=== PATIENT | male | born 1955 | race Caucasian/White ===

== ENCOUNTER 2017-11-24 12:06 | Emergency (ER) | payer BC, OTHER ==
[2017-11-24 12:21] VITALS: RESP 18
--- NOTE | 2017-11-24 13:36 | ED ---
Male Urogenital HPI - General Chief complaint: Urogenital Stated complaint: Groin Pain/ pulled muscle sent from [facility] Time Seen by Provider: 11/24/17 12:23 Source: patient, RN notes reviewed Mode of arrival: ambulatory Limitations: no limitations - History of Present Illness Initial comments: This is a 62-year-old male who presents to the emergency department with chief complaint of right groin pain. Patient states that at approximately 8:45 this morning he was moving a 200 pound valve at work and he felt sudden onset right groin pain. He describes the pain as sharp and stabbing with a constant aching. He reports that the pain is made worse by going upstairs and sitting. It is improved with standing. Denies any trauma to the area. He does state that he has right testicular and right lower abdominal pain. Denies back pain. Denies dysuria, hematuria or increased frequency of urination. Denies fevers or chills, shortness of breath or chest pain, nausea or vomiting, diarrhea or constipation. - Related Data Home Medications Medication Instructions Recorded Confirmed Aspirin 325 mg PO DAILY 04/21/15 05/26/16 Clopidogrel Bisulfate [Plavix] 75 mg PO DAILY 04/21/15 05/24/16 Famotidine [Pepcid] 20 mg PO DAILY 04/21/15 05/24/16 Isosorbide Dinitrate 30 mg PO DAILY 04/21/15 05/24/16 Losartan [Cozaar] 50 mg PO DAILY 04/21/15 05/24/16 Metoprolol Tartrate [Lopressor] 25 mg PO BID 04/21/15 05/24/16 Rosuvastatin Calcium [Crestor] 20 mg PO DAILY 04/21/15 05/24/16 Previous Rx's Medication Instructions Recorded Nitroglycerin Sl Tabs [Nitrostat] 0.4 mg SUBLINGUAL Q5M PRN #25 tab 05/27/16 glyBURIDE/METFORMIN HCL 1 each PO BID #0 05/27/16 [glyBURIDE/METFORMIN HCL 5-500 mg] Allergies Allergy/AdvReac Type Severity Reaction Status Date / Time No Known Allergies Allergy Verified 11/24/17 12:21 Review of Systems ROS Statement: Those systems with pertinent positive or pertinent negative responses have been documented in the HPI. ROS Other: All systems not noted in ROS Statement are negative. 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 HEENT: Head atraumatic, normocephalic. Pupils are equal, round and reactive to light. Extraocular movements intact. Oropharynx moist without erythema or exudate. Neck: Supple. Normal ROM. Cardiovascular: Regular rate and rhythm. No murmurs, rubs or gallops. Chest symmetrical. Respiratory: Lungs clear to auscultation bilaterally. No wheezes, rales or rhonchi. Normal respiratory effort with no use of accessory muscles. Abdomen: Soft, non-distended. Tenderness on palpation of right lower abdomen and suprapubic region. No rigidity or guarding. There is rebound tenderness. Normal bowel sounds in all 4 quadrants. Musculoskeletal: Normal ROM, no tenderness bilateral upper and lower extremities. Ambulating normally. Skin: [place], warm and dry without rashes or lesions. Neurological: Alert and oriented x3. CN II-XII grossly intact. Speech is fluent and answers are appropriate. No focal neuro deficits. Psychiatric: Normal mood and affect. No overt signs of depression or anxiety noted. Limitations: no limitations exam: Present: normal inspection, testicular tenderness (right ), other ( Tenderness noted over right testicle and right epididymis. No palpable hernia with forced cough. Right inguinal and right suprapubic tenderness on palpation. ). Absent: urethral discharge, scrotal swelling Course Vital Signs 11/24/17 11/24/17 12:18 13:51 Temperature 98.2 F 98.5 F Pulse Rate 78 81 Respiratory 18 18 Rate Blood Pressure 118/76 115/69 O2 Sat by Pulse 97 100 Oximetry Medical Decision Making - Medical Decision Making This is a 62-year-old male who presents to the emergency department with chief complaint of right groin pain. Patient states that he was at work and moving a large pipe when he felt sudden onset right groin pain that patient described as stabbing. Ultrasound of right groin revealed no acute abnormalities. Ultrasound of the scrotum did reveal bilateral testicular hydroceles. Patient complains of only mild pain. Vital signs are stable and he is in no acute distress. Patient will be discharged home with recommendation to follow up with surgery for further evaluation and possible treatment. Patient is in agreement with plan and voices understanding. All questions were answered. - Radiology Data Radiology results: report reviewed Ultrasound right groin findings: Images of area of concern in the right groin shows no worrisome solid or cystic mass or abnormal fluid collection. No bowel or suspicious fat-containing inguinal hernia is present on images saved. Impression: As above. Ultrasound scrotum with Doppler impression: Moderate to large size right greater than left scrotal fluid collection or hydroceles. Disposition Clinical Impression: Right groin pain Disposition: HOME SELF-CARE Condition: Good Instructions: Groin Pain (ED) Additional Instructions: Please follow-up with Dr. Thurman, surgery within 1-2 days. Please only perform light duty at work and limit heavy lifting. Please follow up with primary care provider within 1-2 days. Return to emergency department if symptoms should worsen or any concerns arise. Referrals: Vinh Chatman MD [Primary Care Provider] - 1-2 days Fer Thurman DO [Doctor of Osteopathic Medicine] - 1-2 days Time of Disposition: 14:10
--- NOTE | 2017-11-24 13:49 | US ---
EXAMINATION TYPE: US scrotum with doppler. Grayscale and color Doppler Duplex imaging performed of chacha weeks scrotum. DATE OF EXAM: 11/24/2017 COMPARISON: NONE CLINICAL HISTORY: Pain. right groin (muscle) pull EXAM MEASUREMENTS: TESTICLES: Right Testicle: 4.7 x 3.1 x 2.4 cm Left Testicle: 4.2 x 2.7 x 2.7 cm Doppler performed to assess for testicular vascularity; good bilateral color flow and waveforms are s een. Presence of hydroceles: yes fluid bilaterally with more in right scrotum Bilateral testicles are homogeneous in appearance without suspicious focal intratesticular mass. Holden r images shows satisfactory arterial blood flow to and venous return from both testicles. There are s crotal fluid collection or hydroceles seen bilaterally fairly moderate to large in size, right is lar smooth than left. Comparison views show symmetric blood flow to both testicles. No suspicious skin thickening is seen. Scrotal fluid collections are partially imaged. IMPRESSION: Moderate to large size right greater than left scrotal fluid collection or hydroceles.
--- NOTE | 2017-11-24 13:50 | US ---
EXAMINATION TYPE: US groin RT DATE OF EXAM: 11/24/2017 COMPARISON: NONE CLINICAL HISTORY: Pain. rt groin (muscle) pull Right groin and inguina scanned. No gross abnormality identified Images of area of concern in right groin shows no worrisome solid or cystic mass or abnormal fluid co llection. No bowel or suspicious fat-containing inguinal hernia is present on images saved. IMPRESSION: As above.
[2017-11-24 13:52] VITALS: BP 115/69; PULSE 81; TEMP 98.5
== END 2017-11-24 14:24 | disposition home or self-care (01) ==
LOC: EC 12:06
DX: R10.31 Right lower quadrant pain (principal); N50.811 Right testicular pain; I25.10 Atherosclerotic heart disease of native coronary artery without angina pectoris; K21.9 Gastro-esophageal reflux disease without esophagitis; E78.5 Hyperlipidemia, unspecified; I10 Essential (primary) hypertension; I25.2 Old myocardial infarction; Z85.840 Personal history of malignant neoplasm of eye; Z79.82 Long term (current) use of aspirin; Z79.02 Long term (current) use of antithrombotics/antiplatelets; Z79.899 Other long term (current) drug therapy
CPT/HCPCS: 76870; 93975; 99284

== ENCOUNTER 2018-06-07 23:50 | Observation (INO) | payer MEDICARE, OTHER, BC ==
[2018-06-07 23:59] VITALS: RESP 18
[2018-06-08 00:35] LABS: Basophils % (A) 1 %; Eosinophils # (A) 0.2 k/uL (0-0.7); Eosinophils % (A) 4 %; HCT 39.6 % (39.0-53.0); Lymphocytes # (A) 1.7 k/uL (1.0-4.8); Lymphocytes % (A) 34 %; MCH 29.7 pg (25.0-35.0); MCHC 35.3 g/dL (31.0-37.0); MCV 84.3 fL (80.0-100.0); Mean Platelet Volume 7.4; Monocytes # (A) 0.5 k/uL (0-1.0); Monocytes % (A) 11 %; Neutrophils # (A) 2.3 k/uL (1.3-7.7); Neutrophils % (A) 47 %; Platelet Count 159 k/uL (150-450); RDW 13.9 % (11.5-15.5); WBC 4.8 k/uL (3.8-10.6)
--- NOTE | 2018-06-08 00:40 | XR ---
EXAMINATION TYPE: XR chest 2V DATE OF EXAM: 06/08/2018 COMPARISON: NONE HISTORY: Chest pain TECHNIQUE: Frontal and lateral views of the chest are obtained. FINDINGS: Heart and mediastinum are normal. Lungs are clear. Diaphragm is normal. Bony thorax is int act. There are chest leads. IMPRESSION: Normal chest.
[2018-06-08] MEDS ORDERED: NITROGLYCERIN OINT 1 INCH/GM PACKET TOPICAL STA (00:42)
[2018-06-08] MEDS ORDERED: ASPIRIN 81 MG PO STA (00:42)
[2018-06-08 00:45] LABS: INR 1.2 (<1.2); Prothrombin Time 11.2 sec (9.0-12.0)
[2018-06-08 00:46] LABS: Partial Thromboplastin Time 23.1 sec (22.0-30.0)
[2018-06-08 00:47] LABS: ALT 39 U/L (21-72); AST 35 U/L (17-59); Alkaline Phosphatase 72 U/L (38-126); Anion Gap 10 mmol/L; Blood Urea Nitrogen 23 mg/dL (9-20); Calcium 9.1 mg/dL (8.4-10.2); Carbon Dioxide 22 mmol/L (22-30); Chloride 109 mmol/L (98-107); Glucose 167 mg/dL (74-99); Magnesium 2.1 mg/dL (1.6-2.3); Potassium 3.7 mmol/L (3.5-5.1); Sodium 141 mmol/L (137-145); Total Bilirubin 1.1 mg/dL (0.2-1.3); Total Protein 6.4 g/dL (6.3-8.2)
[2018-06-08 00:50] LABS: Creatine Kinase 168 U/L (55-170)
--- NOTE | 2018-06-08 00:51 | ED ---
General Adult HPI - General Source: patient, EMS, RN notes reviewed Mode of arrival: EMS Limitations: no limitations <Marco Anderson - Last Filed: 06/08/18 00:51> <Nicolas Dong - Last Filed: 06/08/18 03:21> - General Chief complaint: Chest Pain Stated complaint: Chest Pain Time Seen by Provider: 06/08/18 00:20 - History of Present Illness Initial comments: Patient is a pleasant [age]-year-old male presenting to the emergency Department with chest discomfort. Patient was woken from sleep approximately an hour ago. Discomfort felt like she with some rotation towards the arm. No associated dyspnea or diaphoresis. Patient was slightly nauseated that has resolved. Patient did take aspirin and nitroglycerin at home that his near resolved his symptoms. Symptoms are very mild at this time rated 1 or 2 out of 10. Patient is unclear if symptoms are related to previous cardiac problems. No leg pain or leg swelling. (Marco Anderson) - Related Data Home Medications Medication Instructions Recorded Confirmed Aspirin 325 mg PO DAILY 04/21/15 05/26/16 Clopidogrel Bisulfate [Plavix] 75 mg PO DAILY 04/21/15 05/24/16 Famotidine [Pepcid] 20 mg PO DAILY 04/21/15 05/24/16 Isosorbide Dinitrate 30 mg PO DAILY 04/21/15 05/24/16 Losartan [Cozaar] 50 mg PO DAILY 04/21/15 05/24/16 Metoprolol Tartrate [Lopressor] 25 mg PO BID 04/21/15 05/24/16 Rosuvastatin Calcium [Crestor] 20 mg PO DAILY 04/21/15 05/24/16 Previous Rx's Medication Instructions Recorded Nitroglycerin Sl Tabs [Nitrostat] 0.4 mg SUBLINGUAL Q5M PRN #25 tab 05/27/16 glyBURIDE/METFORMIN HCL 1 each PO BID #0 05/27/16 [glyBURIDE/METFORMIN HCL 5-500 mg] Allergies Allergy/AdvReac Type Severity Reaction Status Date / Time No Known Allergies Allergy Verified 06/08/18 00:02 Review of Systems ROS Other: All systems not noted in ROS Statement are negative. Constitutional: Denies: fever Eyes: Denies: eye pain ENT: Denies: ear pain Respiratory: Denies: cough, dyspnea Cardiovascular: Reports: chest pain Endocrine: Denies: fatigue Gastrointestinal: Reports: nausea. Denies: abdominal pain Genitourinary: Denies: dysuria Musculoskeletal: Denies: back pain Skin: Denies: rash Neurological: Denies: weakness <Marco Anderson - Last Filed: 06/08/18 00:51> ROS Other: All systems not noted in ROS Statement are negative. <NavdeepbrianNicolas - Last Filed: 06/08/18 03:21> ROS Statement: Those systems with pertinent positive or pertinent negative responses have been documented in the HPI. 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 Past Anesthesia/Blood Transfusion Reactions: No Reported Reaction Date of Last Stent Placement:: 2005 Past Psychological History: No Psychological Hx Reported Smoking Status: Never smoker Past Alcohol Use History: Occasional Past Drug Use History: None Reported - Past Family History Mother Family Medical History: Cancer Father Family Medical History: Cancer Brother(s) Family Medical History: Cancer Sister(s) Family Medical History: Cancer <Marco Anderson - Last Filed: 06/08/18 00:51> General Exam Limitations: no limitations General appearance: alert, in no apparent distress Head exam: Present: atraumatic Eye exam: Present: other (Right eye is prosthetic) ENT exam: Present: normal oropharynx Neck exam: Present: normal inspection Respiratory exam: Present: normal lung sounds bilaterally. Absent: chest wall tenderness Cardiovascular Exam: Present: regular rate, normal rhythm Expanded Peripheral pulses: 2+: Radial (R), Radial (L), Dorsalis Pedis (R), Dorsalis Pedis (L) GI/Abdominal exam: Present: soft. Absent: tenderness Extremities exam: Present: normal inspection. Absent: pedal edema, calf tenderness Neurological exam: Present: alert Psychiatric exam: Present: normal affect, normal mood Skin exam: Present: normal color. Absent: rash, cyanosis, pallor <Marco Anderson - Last Filed: 06/08/18 00:51> Course <Marco Anderson - Last Filed: 06/08/18 00:51> <Nicolas Dong - Last Filed: 06/08/18 03:21> Vital Signs 06/07/18 06/08/18 06/08/18 23:52 00:00 00:54 Temperature 98.5 F Pulse Rate 58 L 62 Respiratory 18 18 Rate Blood Pressure 136/63 136/63 O2 Sat by Pulse 96 95 Oximetry 06/08/18 02:50 Temperature Pulse Rate 61 Respiratory 18 Rate Blood Pressure 94/59 O2 Sat by Pulse 98 Oximetry - Reevaluation(s) Reevaluation #1: 06/08/18 00:[address] Crain for final disposition (Marco Anderson) EKG Findings - EKG Comments: EKG Findings:: Sinus rhythm at 63. PVC present. First degree AV block ID of 202. QRS 106. QT 420. QTc 420 9P left axis. LVH criteria. Inferior Q waves. No acute ST change. <Marco Anderson - Last Filed: 06/08/18 00:51> Medical Decision Making - Lab Data Result diagrams: 06/08/18 00:01 06/08/18 00:01 <Marco Anderson - Last Filed: 06/08/18 00:51> - Lab Data Result diagrams: 06/08/18 00:01 06/08/18 00:01 <Nicolas Dong - Last Filed: 06/08/18 03:21> - Lab Data Lab Results 06/08/18 06/08/18 06/08/18 Range/Units 00:01 00:01 00:01 WBC 4.8 (3.8-10.6) k/uL RBC 4.70 (4.30-5.90) m/uL Hgb 14.0 (13.0-17.5) gm/dL Hct 39.6 (39.0-53.0) % MCV 84.3 (80.0-100.0) fL MCH 29.7 (25.0-35.0) pg MCHC 35.3 (31.0-37.0) g/dL RDW 13.9 (11.5-15.5) % Plt Count 159 (150-450) k/uL Neutrophils % 47 % Lymphocytes % 34 % Monocytes % 11 % Eosinophils % 4 % Basophils % 1 % Neutrophils # 2.3 (1.3-7.7) k/uL Lymphocytes # 1.7 (1.0-4.8) k/uL Monocytes # 0.5 (0-1.0) k/uL Eosinophils # 0.2 (0-0.7) k/uL Basophils # 0.0 (0-0.2) k/uL PT (9.0-12.0) sec INR (<1.2) APTT (22.0-30.0) sec D-Dimer (<0.60) mg/L FEU Sodium 141 (137-145) mmol/L Potassium 3.7 (3.5-5.1) mmol/L Chloride 109 H (98-107) mmol/L Carbon Dioxide 22 (22-30) mmol/L Anion Gap 10 mmol/L BUN 23 H (9-20) mg/dL Creatinine 0.89 (0.66-1.25) mg/dL Est GFR (CKD-EPI)AfAm >90 (>60 ml/min/1.73 sqM) Est GFR (CKD-EPI)NonAf >90 (>60 ml/min/1.73 sqM) Glucose 167 H (74-99) mg/dL Calcium 9.1 (8.4-10.2) mg/dL Magnesium 2.1 (1.6-2.3) mg/dL Total Bilirubin 1.1 (0.2-1.3) mg/dL AST 35 (17-59) U/L ALT 39 (21-72) U/L Alkaline Phosphatase 72 (38-126) U/L Total Creatine Kinase 168 (55-170) U/L CK-MB (CK-2) 2.3 (0.0-2.4) ng/mL CK-MB (CK-2) Rel Index 1.4 Troponin I <0.012 (0.000-0.034) ng/mL Total Protein 6.4 (6.3-8.2) g/dL Albumin 4.0 (3.5-5.0) g/dL 06/08/18 06/08/18 Range/Units 00:01 00:01 WBC (3.8-10.6) k/uL RBC (4.30-5.90) m/uL Hgb (13.0-17.5) gm/dL Hct (39.0-53.0) % MCV (80.0-100.0) fL MCH (25.0-35.0) pg MCHC (31.0-37.0) g/dL RDW (11.5-15.5) % Plt Count (150-450) k/uL Neutrophils % % Lymphocytes % % Monocytes % % Eosinophils % % Basophils % % Neutrophils # (1.3-7.7) k/uL Lymphocytes # (1.0-4.8) k/uL Monocytes # (0-1.0) k/uL Eosinophils # (0-0.7) k/uL Basophils # (0-0.2) k/uL PT 11.2 (9.0-12.0) sec INR 1.2 H (<1.2) APTT 23.1 (22.0-30.0) sec D-Dimer 0.33 (<0.60) mg/L FEU Sodium (137-145) mmol/L Potassium (3.5-5.1) mmol/L Chloride (98-107) mmol/L Carbon Dioxide (22-30) mmol/L Anion Gap mmol/L BUN (9-20) mg/dL Creatinine (0.66-1.25) mg/dL Est GFR (CKD-EPI)AfAm (>60 ml/min/1.73 sqM) Est GFR (CKD-EPI)NonAf (>60 ml/min/1.73 sqM) Glucose (74-99) mg/dL Calcium (8.4-10.2) mg/dL Magnesium (1.6-2.3) mg/dL Total Bilirubin (0.2-1.3) mg/dL AST (17-59) U/L ALT (21-72) U/L Alkaline Phosphatase (38-126) U/L Total Creatine Kinase (55-170) U/L CK-MB (CK-2) (0.0-2.4) ng/mL CK-MB (CK-2) Rel Index Troponin I (0.000-0.034) ng/mL Total Protein (6.3-8.2) g/dL Albumin (3.5-5.0) g/dL Disposition <Marco Anderson - Last Filed: 06/08/18 00:51> Is patient prescribed a controlled substance at d/c from ED?: No <Nicolas Dong - Last Filed: 06/08/18 03:21> Clinical Impression: Chest pain Disposition: ADMITTED IP TO THIS HOSP Condition: Good Instructions: Chest Pain (ED) Referrals: Vinh Chatman MD [Primary Care Provider] - 1-2 days
[2018-06-08 01:03] LABS: Creatine Kinase MB 2.3 ng/mL (0.0-2.4); Troponin I <0.012 ng/mL (0.000-0.034)
[2018-06-08] MEDS ORDERED: NITROGLYCERIN SL TABS 0.4 MG TAB SUBLINGUAL PRN (03:19)
[2018-06-08] MEDS: SODIUM CHLORIDE 0.9% 1,000 ML IV SCH ×2 (05:15→17:29)
[2018-06-08 07:02] LABS: Creatine Kinase 136 U/L (55-170)
[2018-06-08 07:14] LABS: Troponin I <0.012 ng/mL (0.000-0.034)
[2018-06-08] MEDS ORDERED: ATORVASTATIN 40 MG TAB PO SCH (09:00)
[2018-06-08] MEDS ORDERED: LOSARTAN 50 MG TAB PO SCH (09:00)
[2018-06-08] MEDS ORDERED: ISOSORBIDE DINITRATE 10 MG TAB PO SCH ×2 (09:00)
[2018-06-08] MEDS ORDERED: REGADENOSON 0.4 MG/5 ML SYRINGE IV ONE (09:02)
[2018-06-08] MEDS ORDERED: CAFFEINE CITRATE 60 MG/3 ML VIAL IV PRN (09:02)
--- NOTE | 2018-06-08 10:11 | P.CRDCN ---
History of Present Illness History of present illness: Mr. Charles is a pleasant 62-year-old male past medical history significant for coronary artery disease, diabetes mellitus, aortic stenosis, dyslipidemia, hypertension, gastroesophageal reflux disease and ischemic cardiomyopathy that has improved. He follows with Dr. Joel in the office. Most recent cardiac catheterization 2015 secondary to abnormal lexiscan with reversibility noted to inferolateral segment revealed LM patent with no disease, LAD no disease, circumflex with patent stend and mild disease in mid portion with no critical stenosis and RCA with 80% in-stent restenosis proximally. He underwent stenting at that time. We have been asked to see him in consultation for chest pain. He states he worked in his yard yesterday painting his shed. He had no chest pain while working. After falling asleep last night he was woken up in the middle of the night with what he describes as a crushing pain in the left precordial region with radiation down the left arm to the elbow with associated nausea. He denies shortness of breath, dizziness, palpitations or diaphoresis. He got out of bed and took 4 baby aspirin and SL nitro. The pain persisted and he took another nitro minutes later. After the second nitro his pain subsided. He has had no further symptoms of chest pain since coming to the hospital. He was seen and examined by myself and Dr. Jonas sleeping comfortably in bed in no acute distress. EKG on arrival sinus mechanism with PVC, inferior T-wave inversions and poor R- wave progression. Chest xray negative for an acute cardiopulmonary process. Laboratory data reviewed, hgb 14, plt 159, d-dimer 0.33, sodium 141, potassium 3.7, magnesium 2.1, creatinine 0.89, cardiac enzymes negative x2. Current cardiac medications include aspirin 325 mg daily, isosorbid dinitrate 30 mg daily, losartain 50 mg daily, lopressor 25 mg BID and rosuvastatin 20 mg daily. Most recent echocardiogram performed in the office 02/2018 revealed preserved LV systolic function with EF 55%, mild aortic regurgitation and moderate aortic stenosis with mean gradient across the valve of 26 mmHg. Most recent stress test was a Lexiscan 06/2016, 2 months after angioplasty, was normal with no reversible perfusion defects noted. Plan: No acute EKG abnormalities noted. Enzymes negative. Proceed with Lexiscan stress test to assess for stress induced ischemia. Repeat echocardiogram to assess LV systolic structure and function. Resume home cardiac medications. If stress test is normal he is stable from a cardiac perspective, if abnormal we will proceed with coronary angiography Review of Systems At the time of my exam: CONSTITUTIONAL: Denies fever. Denies chills. EYES: Denies blurred vision. Denies vision changes. Denies eye pain. EARS, NOSE, MOUTH & THROAT: Denies headache. Denies sore throat. Denies ear pain. CARDIOVASCULAR: Denies chest pain. Denies shortness of breath. Denies orthopnea. Denies PND. Denies palpitations. RESPIRATORY: Denies cough. GASTROINTESTINAL: Denies abdominal pain. Denies diarrhea. Denies constipation. Denies nausea. Denies vomiting. MUSCULOSKELETAL: Denies myalgias. INTEGUMENTARY: Denies pruitis. Denies rash. NEUROLOGIC: Denies numbness. Denies tingling. Denies weakness. PSYCHIATRIC: Denies anxiety. Denies depression. ENDOCRINE: Denies fatigue. Denies weight change. Denies polydipsia. Denies polyurina. GENITOURINARY: Denies burning, hematuria or urgency with micturation. HEMATOLOGIC: Denies history of anemia. Denies bleeding. 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 Past Anesthesia/Blood Transfusion Reactions: No Reported Reaction Date of Last Stent Placement:: 2005 Past Psychological History: No Psychological Hx Reported Smoking Status: Never smoker Past Alcohol Use History: Occasional Past Drug Use History: None Reported - Past Family History Mother Family Medical History: Cancer Father Family Medical History: Cancer Brother(s) Family Medical History: Cancer Sister(s) Family Medical History: Cancer Medications and Allergies Home Medications Medication Instructions Recorded Confirmed Type Aspirin 325 mg PO DAILY 04/21/15 06/08/18 History Famotidine [Pepcid] 20 mg PO DAILY 04/21/15 06/08/18 History Isosorbide Dinitrate 30 mg PO DAILY 04/21/15 06/08/18 History Losartan [Cozaar] 50 mg PO DAILY 04/21/15 06/08/18 History Metoprolol Tartrate [Lopressor] 25 mg PO BID 04/21/15 06/08/18 History Rosuvastatin Calcium [Crestor] 20 mg PO DAILY 04/21/15 06/08/18 History Nitroglycerin Sl Tabs [Nitrostat] 0.4 mg SUBLINGUAL Q5M PRN #25 tab 05/27/1607/16 Rx Canagliflozin/Metformin HCl 1 tablet PO BID 06/08/18 06/08/18 History [Invokamet 150-500 mg Tablet] Allergies Allergy/AdvReac Type Severity Reaction Status Date / Time No Known Allergies Allergy Verified 06/08/18 00:02 Physical Exam Vitals: Vital Signs Temp Pulse Pulse Resp BP BP Pulse Ox 06/08/18 08:00 98.0 F 51 L 18 113/58 06/08/18 06:16 97.6 F 56 L 18 123/72 96 06/08/18 02:50 61 18 94/59 98 06/08/18 00:54 62 18 136/63 95 06/08/18 00:00 96 06/07/18 23:52 98.5 F 58 L 18 136/63 Intake and Output 06/07/18 06/08/18 06/08/18 22:59 06:59 14:59 Other: # Voids 2 Weight 83.915 kg 83.915 kg Blood pressure 113/58 heart rate 51 afebrile maintaining oxygen saturation on room air GENERAL: This is a 62-year-old male in no apparent distress at the time of my examination. HEENT: Head is atraumatic, normocephalic. Pupils are equal, round. Sclerae anicteric. Conjunctivae are clear. Mucous membranes of the mouth are moist. Neck is supple. There is no jugular venous distention. No carotid bruit is heard. LUNGS: Clear to auscultation no wheezes, rales or rhonchi. No chest wall tenderness is noted on palpation or with deep breathing. HEART: Regular rate and rhythm with systolic ejection murmur at the base, no rubs or gallops. S1 and S2 heard. ABDOMEN: Soft, nontender. Bowel sounds are heard. No organomegaly noted. EXTREMITIES: No evidence of peripheral edema and no calf tenderness noted. VASCULAR: Radial and dorsalis pedis pulses palpated, no evidence of clubbing. NEUROLOGIC: Patient is awake, alert and oriented x3. Results 06/08/18 00:01 06/08/18 00:01 Cardiac Enzymes 06/08/18 06/08/18 06/08/18 Range/Units 00:01 00:01 06:29 AST 35 (17-59) U/L CK-MB (CK-2) 2.3 2.0 (0.0-2.4) ng/mL Troponin I <0.012 <0.012 (0.000-0.034) ng/mL Coagulation 06/08/18 Range/Units 00:01 PT 11.2 (9.0-12.0) sec APTT 23.1 (22.0-30.0) sec CBC 06/08/18 Range/Units 00:01 WBC 4.8 (3.8-10.6) k/uL RBC 4.70 (4.30-5.90) m/uL Hgb 14.0 (13.0-17.5) gm/dL Hct 39.6 (39.0-53.0) % Plt Count 159 (150-450) k/uL Comprehensive Metabolic Panel 06/08/18 Range/Units 00:01 Sodium 141 (137-145) mmol/L Potassium 3.7 (3.5-5.1) mmol/L Chloride 109 H (98-107) mmol/L Carbon Dioxide 22 (22-30) mmol/L BUN 23 H (9-20) mg/dL Creatinine 0.89 (0.66-1.25) mg/dL Glucose 167 H (74-99) mg/dL Calcium 9.1 (8.4-10.2) mg/dL AST 35 (17-59) U/L ALT 39 (21-72) U/L Alkaline Phosphatase 72 (38-126) U/L Total Protein 6.4 (6.3-8.2) g/dL Albumin 4.0 (3.5-5.0) g/dL Current Medications Generic Name Dose Route Start Last Admin Trade Name Freq PRN Reason Stop Dose Admin Aspirin 325 mg 06/09/18 09:00 Aspirin PO DAILY DARIUS Atorvastatin Calcium 40 mg 06/08/18 09:00 Lipitor PO DAILY DARIUS Caffeine Citrate 60 mg 06/08/18 09:02 Cafcit Inj IV 06/08/18 23:00 ONCE PRN Patient Response Sodium Chloride 1,000 mls @ 100 mls/hr 06/08/18 03:30 06/08/18 05:15 Saline 0.9% IV 100 mls/hr .Q10H DARIUS Administration Isosorbide Dinitrate 30 mg 06/08/18 09:00 Isordil PO DAILY DARIUS Losartan Potassium 50 mg 06/08/18 09:00 Cozaar PO DAILY DARIUS Nitroglycerin 0.4 mg 06/08/18 03:19 Nitrostat SUBLINGUAL Q5M PRN Chest Pain Intake and Output 06/07/18 06/08/18 06/08/18 22:59 06:59 14:59 Other: # Voids 2 Weight 83.915 kg 83.915 kg Patient Weight 06/09/18 06:59 Weight 83.915 kg 06/08/18 00:01 06/08/18 00:01 Assessment and Plan Assessment: ASSESSMENT Angina at rest, relieved by nitroglycerin History coronary artery disease. Most recent angioplasty 2015 with stenting of mid RCA in-stent restenosis. Also has stable distal RCA disease approximately 50 % Aortic stenosis Hypertension Dyslipidemia Diabetes mellitus Gastroesophageal reflux disease PLAN No acute EKG abnormalities noted. Enzymes negative. Proceed with Lexiscan stress test to assess for stress induced ischemia. Repeat echocardiogram to assess LV systolic structure and function. Resume home cardiac medications. If stress test is normal he is stable from a cardiac perspective, if abnormal we will proceed with coronary angiography. Thank you kindly for this consultation. Nurse Practitioner note has been reviewed, I agree with a documented findings and plan of care. Patient was seen and examined.
--- NOTE | 2018-06-08 13:22 | NM ---
EXAMINATION TYPE: NM stress lexiscan cardiolite DATE OF EXAM: 06/08/2018 COMPARISON: NONE HISTORY: History of tobacco use in the past, hypertension, diabetes, and prior two-vessel angioplasty with cholesterol and family history of heart attack presents with chest pain and palpitations. TECHNIQUE: After the intravenous administration of 10.0 mCi Tc 99m Sestamibi - Cardiolite resting SP ECT images acquired 45 minutes post injection. The patient received 0.4mg Lexiscan, 25.0 mCi Tc 99m Sestamibi - Stress images obtained [address] injection FINDINGS: Review of stress and rest SPECT images demonstrates no distinct perfusion abnormality. Gated analysi s shows normal wall motion with an estimated left ventricular ejection fraction of 51 %. IMPRESSION: No scintigraphic evidence for reversible ischemia.
[2018-06-08] MEDS ORDERED: CANAGLIFLOZIN PO SCH (13:30)
[2018-06-08] MEDS ORDERED: METFORMIN HCL PO SCH (13:30)
[2018-06-08] MEDS ORDERED: INFLUENZA VACCINE (6 MOS+) 60 MCG/0.5 ML SYRINGE IM ONE (14:13)
[2018-06-08 16:53] VITALS: BP 120/94; PULSE 61; TEMP 97.4
[2018-06-08 17:20] LABS: Glucose,Whole Blood 123 mg/dL (75-99)
--- NOTE | 2018-06-08 18:03 | ECHOF ---
Referral Reason: MEASUREMENTS -------- HEIGHT: 160.0 cm WEIGHT: 83.9 kg BP: RVIDd: 3.4 cm (< 3.3) IVSd: 1.1 cm (0.6 - 1.1) LVIDd: 4.3 cm (3.9 - 5.3) LVPWd: 1.2 cm (0.6 - 1.1) IVSs: 1.6 cm LVIDs: 3.2 cm LVPWs: 1.1 cm LA Diam: 3.6 cm (2.7 - 3.8) Ao Diam: 3.7 cm (2.0 - 3.7) AV Cusp: 1.6 cm (1.5 - 2.6) LA Diam: 3.7 cm (2.7 - 3.8) MV EXCURSION: 21.757 mm (> 18.000) MV EF SLOPE: 83 mm/s (70 - 150) EPSS: 0.3 cm MV E Jose L: 0.52 m/s MV DecT: 387 ms MV A Jose L: 0.74 m/s MV E/A Ratio: 0.71 AV maxP.43 mmHg AV meanP.64 mmHg AR PHT: 371 ms RAP: 5.00 mmHg RVSP: 22.88 mmHg FINDINGS -------- Sinus rhythm with extra systolic beats. This was a technically adequate study. The left ventricular size is normal. There is mild concentric left ventricular hypertrophy. Overa ll left ventricular systolic function is low-normal with, an EF between 50 - 55 %. Basal inferior L V wall motion is hypokinetic. The right ventricle is mildly enlarged. The left atrial size is normal. The right atrial size is normal. There is moderate aortic valve sclerosis. There is moderate aortic stenosis present. Peak/mean gr adient across the Aortic Valve is 37.43mmHg / 17.64mmHg. AOV is possible Bicuspid. Mild mitral annular calcification present. Mild mitral regurgitation is present. Mild tricuspid regurgitation present. There is no evidence of pulmonary hypertension. The right v entricular systolic pressure, as measured by Doppler, is 22.88mmHg. There is no pulmonic regurgitation present. The aortic root size is normal. There is no pericardial effusion. CONCLUSIONS -------- 1. The left ventricular size is normal. 2. Overall left ventricular systolic function is low-normal with, an EF between 50 - 55 %. 3. The right ventricle is mildly enlarged. 4. The left atrial size is normal. 5. The right atrial size is normal. 6. There is moderate aortic valve sclerosis. 7. There is moderate aortic stenosis present. 8. Peak/mean gradient across the Aortic Valve is 37.43mmHg / 17.64mmHg. 9. AOV is possible Bicuspid. 10. Mild mitral annular calcification present. 11. Mild mitral regurgitation is present. 12. Mild tricuspid regurgitation present. 13. There is no evidence of pulmonary hypertension. 14. The right ventricular systolic pressure, as measured by Doppler, is 22.88mmHg. 15. There is no pulmonic regurgitation present. 16. The aortic root size is normal. 17. There is no pericardial effusion. SUPERVISOR MAPPING: Kiki Rivas RDCS
--- NOTE | 2018-06-08 20:29 | EST ---
EXERCISE STRESS AGE: 62 SEX: M HT: 5 foot 5 WT: 185 PROTOCOL: Lexiscan HEART RATE REST: 56 BLOOD PRESSURE REST: 123/72 MAXIMUM HEART RATE ACHIEVED: 76 MAXIMUM BLOOD PRESSURE: 132/65 85% MPHR: 133 100% MPHR: 156 INDICATIONS: Chest pain. CLINICAL INFORMATION: Baseline EKG revealed a sinus bradycardia with isolated PVCs. With Lexiscan administration heart rate changed from 56 to 76 beats per minute. Blood pressure changed from 123/72 to 132/65. Isolated PVCs were noted without any change. No significant ST-segment changes were reported. The patient did not have any angina. By EKG criteria, this is considered as a unremarkable Lexiscan stress test with isolated PVCs. The nuclear scan results which are more pertinent, will be reported by the radiologist. JEFERSONL / IJN: [id number] /
[2018-06-09] MEDS ORDERED: ASPIRIN 325 MG TAB PO SCH (09:00)
--- NOTE | 2018-06-09 11:54 | DS ---
DISCHARGE SUMMARY DATE OF ADMISSION: 06/07/2018. DATE OF DISCHARGE: 06/08/2018. DATE OF SERVICE: 06/08/2018 THIS IS BOTH A HISTORY AND PHYSICAL AND DISCHARGE SUMMARY ON THIS PATIENT. PRESENTING COMPLAINT: Chest pain. HISTORY OF PRESENTING COMPLAINT: Pleasant 62-year-old patient who follows with Dr. Chatman. 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 Patient back in 2016 had an angioplasty stent to RCA. Chronic stable medical conditions include diabetes, hypertension, hyperlipidemia, and some osteoarthritis. 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 The patient is left-handed but also using his right hand. The patient is pretty active, just finished making a deck. Patient went to sleep, woke up with rather severe pain in the left infraclavicular area and also going down the left arm. Patient took 3 aspirins and took 2 nitros over 10 minutes with some lightening up. There was no shortness of breath. No dizziness. No lightheadedness. No perspiration, but the patient did feel tired. Hence, patient decided to come in. Patient presented to the ER and diagnosed with unstable angina, was put on the nitro paste with more aspirin and Cardiology was consulted. Serial cardiac enzymes were ordered. The patient's is present at the bedside. REVIEW OF SYSTEMS: CONSTITUTIONAL: None. HEENT: None. RESPIRATORY: None. CARDIOVASCULAR: As above. GASTROINTESTINAL: None. GENITOURINARY: None. MUSCULOSKELETAL: Aches and pains in some joints. DERMATOLOGICAL; None. HEMATOLOGICAL: None. LYMPHATIC: None. PSYCHIATRY: None. NEUROLOGICAL: None. 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 PAST SURGICAL HISTORY: Cardiac cath with stent done in 2002, 2004 and 2016, umbilical hernia repair. 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 The patient smoked for 33 years. Stopped in 2001. Alcohol occasionally. 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 FAMILY HISTORY: Father had stomach cancer. HOME MEDICATIONS: 1. Toprol-XL 25 mg q.h.s. 2. Crestor 20 mg a day. 3. Nitrostat 0.4 sublingual q.5 p.r.n. 4. Cozaar 50 mg p.o. daily. 5. Isosorbide dinitrate 30 mg p.o. daily. 6. Pepcid 20 mg p.o. daily. 7. Invokana 150/5 mg 1 tablet p.o. b.i.d. 8. Aspirin 81 mg a day. ALLERGIES: None. PHYSICAL EXAMINATION: VITAL SIGNS: Vital signs on presentation: Temp 98.5 pulse 50, respiratory rate 18, blood pressure 137/63, pulse ox 96% on 2 L. GENERAL APPEARANCE: Average build, lying in bed, comfortable. EYES: Left eye is normal. Right eye is prosthetic. HEENT: External appearance of nose and ears normal. Oral cavity normal. NECK: JVD not raised, mass not palpable. RESPIRATORY: Effort normal, lungs are clear. CARDIOVASCULAR: First and second sounds, no edema. ABDOMEN: Soft, nontender. Liver and spleen not palpable. LYMPHATICS: No lymph node enlargement in the neck or axillae. PSYCHIATRY: Alert and oriented x3. Mood and affect normal. NEUROLOGICAL: Pupils equal. Cranial nerves grossly intact. Power and sensation grossly intact. MUSCULOSKELETAL: Evidence of osteoarthritis especially in the hands and knees. INVESTIGATIONS: White count 4.8, hemoglobin 14, potassium 3.7, BUN 23 with creatinine 0.89. Troponin x2 negative. EKG tracing personally reviewed by me shows normal sinus rhythm. Chest x- ray film, personally reviewed by me, shows slight cardiomegaly. Lung peraza are otherwise clear. ASSESSMENT: 1. Possible unstable angina in a patient with known coronary artery disease or also could be musculoskeletal following excessive working in the garage with painting. 2. Coronary artery with stent in 2016. 3. Diabetes mellitus type 2 on oral hypoglycemic. 4. Essential hypertension. 5. Hyperlipidemia. 6. Primary osteoarthritis. 7. Moderate aortic stenosis, nonrheumatic. PLAN: Patient's serial cardiac enzymes are negative, did undergo a stress test that was negative. A 2D echocardiogram showed EF of 50%-55% and moderate aortic stenosis was present. Patient was seen by Dr. Luis Miguel Jonas from Cardiology who reviewed the stress test. Patient is okay to be discharged. This could have been a musculoskeletal pain. DISPOSITION: Home. Home medications to continue as above. FOLLOWUP PLAN: Follow up with Dr. Chatman in 1 week. Follow up with Dr. Joel on 06/29/2018, MMODL / IJN: [id number] /
== END 2018-06-08 18:30 | disposition home or self-care (01) ==
LOC: EC 23:50 → 3OBS 06-08 03:19
PROVIDERS: ADMIT Hospitalist; ATTEND Hospitalist
DX: I25.10 Atherosclerotic heart disease of native coronary artery without angina pectoris (principal); E11.9 Type 2 diabetes mellitus without complications; I35.0 Nonrheumatic aortic (valve) stenosis; K21.9 Gastro-esophageal reflux disease without esophagitis; M19.91 Primary osteoarthritis, unspecified site; E78.5 Hyperlipidemia, unspecified; I10 Essential (primary) hypertension; I25.2 Old myocardial infarction; Z85.840 Personal history of malignant neoplasm of eye; Z90.01 Acquired absence of eye; Z97.0 Presence of artificial eye; Z79.82 Long term (current) use of aspirin; Z79.899 Other long term (current) drug therapy; Z87.891 Personal history of nicotine dependence; Z80.0 Family history of malignant neoplasm of digestive organs; Z79.84 Long term (current) use of oral hypoglycemic drugs
CPT/HCPCS: 99285; 36415; 93005; 93017; 93306; 85379; 80053; 82550; 82553; 83735; 84484; 85025; 85610; 85730; 71046; 78452; G0378; A9500; J2785

== ENCOUNTER 2018-12-23 18:03 | Inpatient (IN) | payer MEDICARE, OTHER ==
[2018-12-23] MEDS ORDERED: MORPHINE SULFATE 4 MG/ML SYRINGE IV STA (18:21)
[2018-12-23] MEDS ORDERED: ONDANSETRON 4 MG/2 ML VIAL IVP STA (18:21)
[2018-12-23] MEDS ORDERED: SODIUM CHLORIDE 0.9% 1,000 ML IV STA (18:21)
--- NOTE | 2018-12-23 18:29 | ED ---
General Adult HPI <Maykel Pruitt - Last Filed: 12/23/18 20:23> - General Source: patient, RN notes reviewed, old records reviewed Mode of arrival: ambulatory Limitations: no limitations <Juan Carlos Orellana - Last Filed: 12/23/18 21:50> - General Chief complaint: Abdominal Pain Stated complaint: Abd Pain Time Seen by Provider: 12/23/18 18:13 - History of Present Illness Initial comments: 63-year-old male patient past medical history of coronary artery disease, type 2 diabetes, prior melanoma of right leg, hypertension presents to ED with abdominal pain. Patient reports that he has had 3 days of abdominal pain. Patient states it is in his right upper quadrant which also radiates to his right lower quadrant as well as epigastric/substernal region. Patient states that this pain is worse with a deep breath. Patient states that this does not feel like his cardiac events of the past. Patient to that he has had some nausea without emesis. Patient denies any dysuria. Patient denies any headache or changes in vision. Patient has any shortness of breath or chest pain at rest/at baseline. Systemic: Pt denies fatigue, myalgia, fever/chills, rash. Pt denies weakness, night sweats, weight loss. Neuro: Pt denies headache, visual disturbances, syncope or pre-syncope. HEENT: Pt denies ocular discharge or irritation, otalgia, rhinorrhea, pharyngitis or notable lymphadenopathy. Cardiopulmonary: Pt denies SOB, heart palpitations, dyspnea on exertion. Abdominal/GI: Pt denies n/v/d. : Pt denies dysuria, burning w/ urination, frequency/urgency. Denies new onset urinary or bowel incontinence. MSK: Pt denies myalgia, loss of strength or function in extremities. Neuro: Pt denies new onset weakness, paresthesias. (Juan Carlos Orellana) - Related Data Home Medications Medication Instructions Recorded Confirmed Famotidine [Pepcid] 20 mg PO DAILY 04/21/15 12/23/18 Losartan [Cozaar] 50 mg PO DAILY 04/21/15 12/23/18 Rosuvastatin Calcium [Crestor] 20 mg PO HS 04/21/15 12/23/18 Metoprolol Succinate (ER) [Toprol 25 mg PO DAILY 06/08/18 12/23/18 XL] Isosorbide Mononitrate ER [Imdur] 30 mg PO DAILY 12/23/18 12/23/18 Tamsulosin [Flomax] 0.4 mg PO HS 12/23/18 12/23/18 glyBURIDE/METFORMIN HCL 1 tab PO DAILY 12/23/18 12/23/18 [Glucovance 5-500 mg] Previous Rx's Medication Instructions Recorded Nitroglycerin Sl Tabs [Nitrostat] 0.4 mg SUBLINGUAL Q5M PRN #25 tab 05/27/16 Allergies Allergy/AdvReac Type Severity Reaction Status Date / Time No Known Allergies Allergy Verified 12/23/18 20:59 Review of Systems ROS Other: All systems not noted in ROS Statement are negative. <Maykel Pruitt - Last Filed: 12/23/18 20:23> ROS Other: All systems not noted in ROS Statement are negative. <Juan Carlos Orellana - Last Filed: 12/23/18 21:50> ROS Statement: Those systems with pertinent positive or pertinent negative responses have been documented in the HPI. 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 Past Anesthesia/Blood Transfusion Reactions: No Reported Reaction Date of Last Stent Placement:: 2004 Past Psychological History: No Psychological Hx Reported Smoking Status: Former smoker - Past Family History Mother Family Medical History: Cancer Additional Family Medical History / Comment(s): Mother had cervical cancer and lung cancer. She at the age of 43yrs. Father Family Medical History: Cancer Additional Family Medical History / Comment(s): Father had stomach cancer. He at the age of 78yrs. Brother(s) Family Medical History: Cancer Additional Family Medical History / Comment(s): Brother had skin cancer. He is living. Sister(s) Family Medical History: Cancer Additional Family Medical History / Comment(s): Sister had thyroid cancer. She is living <Juan Carlos Orellana - Last Filed: 12/23/18 21:50> General Exam Limitations: no limitations <Juan Carlos Orellana - Last Filed: 12/23/18 21:50> - General Exam Comments Initial Comments: Constitutional: NAD, AOX3, Pt has pleasant affect. HEENT: NC/AT, trachea midline, neck supple, no lymphadenopathy. Posterior phary nx non erythematous, without exudates. External ears appear normal, without discharge. Mucous membranes moist. Eyes PERRLA, EOM intact. There is no scleral icterus. No pallor noted. Cardiopulmonary: RRR, no murmurs, rubs or gallops, no JVD noted. Lungs CTAB in anterior and posterior peraza. No peripheral edema. Abdominal exam: Abdomen soft and non-distended. Abdomen mildly tender to palpation in RUQ, RLQ. Bowel sounds active in LLQ. No hepatosplenomegaly. No ecchymosis Neuro: CN II-XII grossly intact. No nuchal rigidity. MSK: No posterior calf tenderness bilaterally, homans sign negative bilaterally. Posterior tibialis and radial pulse +2 bilaterally. Sensation intact in upper and lower extremities. Full active ROM in upper and lower extremities, 5/5 stregnth. (Juan Carlos Orellana) Course <Maykel Pruitt - Last Filed: 12/23/18 20:23> Vital Signs 12/23/18 12/23/18 18:10 19:39 Temperature 97.6 F Pulse Rate 88 82 Respiratory 16 19 Rate Blood Pressure 134/74 109/67 O2 Sat by Pulse 98 99 Oximetry - Reevaluation(s) Reevaluation #1: 12/23/18 20:23 PA supervision: I proceeded [id number] evaluation the patient did discuss the findings including CAT scan findings and the family. Patient does have evidence of metastatic disease to liver. Patient will be admitted for inpatient evaluation and workup. I did discuss the case with Dr. Snell. Surgery will be consulted. I do agree with the assessment and plan (Maykel Pruitt) Medical Decision Making - Lab Data Result diagrams: 12/23/18 18:32 12/23/18 18:32 <Maykel Pruitt - Last Filed: 12/23/18 20:23> - Lab Data Result diagrams: 12/23/18 18:32 12/23/18 18:32 - EKG Data -: EKG Interpreted by Me <Juan Carlos Orellana - Last Filed: 12/23/18 21:50> - Medical Decision Making 3-year-old male patient past medical history of coronary artery disease, type 2 diabetes, prior melanoma of right leg, hypertension presents to ED with abdominal pain. Patient reports that he has had 3 days of abdominal pain. Patient states it is in his right upper quadrant which also radiates to his right lower quadrant as well as epigastric/substernal region. Patient states that this pain is worse with a deep breath. Patient states that this does not feel like his cardiac events of the past. Patient to that he has had some nausea without emesis. Patient denies any dysuria. Patient denies any headache or changes in vision. Patient has any shortness of breath or chest pain at rest/at baseline. Patient vital signs stable, afebrile. Physical exam d isplayed: Abdomen mildly tender to palpation in RUQ, RLQ. Laboratory investigations revealed nonimpressive CBC. CMP revealed mildly elevated liver enzymes. UA negative. Coagulation studies wnl. D-dimer negative. Troponin negative. EKG not concerning for acute ischemia. CT abdomen alteration in the liver suggestive of metastatic disease. Case is discussed with attending physician Dr. Pruitt. Patient be admitted for continued evaluation with surgical consult. (Juan Carlos Orellana) - Lab Data Lab Results 12/23/18 12/23/18 12/23/18 Range/Units 18:32 18:32 18:32 WBC 5.2 (3.8-10.6) k/uL RBC 5.15 (4.30-5.90) m/uL Hgb 14.8 (13.0-17.5) gm/dL Hct 44.9 (39.0-53.0) % MCV 87.1 (80.0-100.0) fL MCH 28.7 (25.0-35.0) pg MCHC 32.9 (31.0-37.0) g/dL RDW 14.3 (11.5-15.5) % Plt Count 131 L (150-450) k/uL Neutrophils % 67 % Lymphocytes % 17 % Monocytes % 11 % Eosinophils % 1 % Basophils % 0 % Neutrophils # 3.5 (1.3-7.7) k/uL Lymphocytes # 0.9 L (1.0-4.8) k/uL Monocytes # 0.6 (0-1.0) k/uL Eosinophils # 0.1 (0-0.7) k/uL Basophils # 0.0 (0-0.2) k/uL PT (9.0-12.0) sec INR (<1.2) APTT (22.0-30.0) sec D-Dimer (<0.60) mg/L FEU Sodium 138 (137-145) mmol/L Potassium 4.1 (3.5-5.1) mmol/L Chloride 104 (98-107) mmol/L Carbon Dioxide 27 (22-30) mmol/L Anion Gap 7 mmol/L BUN 15 (9-20) mg/dL Creatinine 0.72 (0.66-1.25) mg/dL Est GFR (CKD-EPI)AfAm >90 (>60 ml/min/1.73 sqM) Est GFR (CKD-EPI)NonAf >90 (>60 ml/min/1.73 sqM) Glucose 76 (74-99) mg/dL Plasma Lactic Acid Efren 1.2 (0.7-2.0) mmol/L Calcium 8.7 (8.4-10.2) mg/dL Total Bilirubin 1.7 H (0.2-1.3) mg/dL AST 105 H (17-59) U/L ALT 174 H (21-72) U/L Alkaline Phosphatase 194 H (38-126) U/L Troponin I (0.000-0.034) ng/mL Total Protein 6.1 L (6.3-8.2) g/dL Albumin 3.3 L (3.5-5.0) g/dL Lipase 254 (23-300) U/L 12/23/18 12/23/18 Range/Units 18:32 18:32 WBC (3.8-10.6) k/uL RBC (4.30-5.90) m/uL Hgb (13.0-17.5) gm/dL Hct (39.0-53.0) % MCV (80.0-100.0) fL MCH (25.0-35.0) pg MCHC (31.0-37.0) g/dL RDW (11.5-15.5) % Plt Count (150-450) k/uL Neutrophils % % Lymphocytes % % Monocytes % % Eosinophils % % Basophils % % Neutrophils # (1.3-7.7) k/uL Lymphocytes # (1.0-4.8) k/uL Monocytes # (0-1.0) k/uL Eosinophils # (0-0.7) k/uL Basophils # (0-0.2) k/uL PT 10.6 (9.0-12.0) sec INR 1.0 (<1.2) APTT 23.4 (22.0-30.0) sec D-Dimer 0.49 (<0.60) mg/L FEU Sodium (137-145) mmol/L Potassium (3.5-5.1) mmol/L Chloride (98-107) mmol/L Carbon Dioxide (22-30) mmol/L Anion Gap mmol/L BUN (9-20) mg/dL Creatinine (0.66-1.25) mg/dL Est GFR (CKD-EPI)AfAm (>60 ml/min/1.73 sqM) Est GFR (CKD-EPI)NonAf (>60 ml/min/1.73 sqM) Glucose (74-99) mg/dL Plasma Lactic Acid Efren (0.7-2.0) mmol/L Calcium (8.4-10.2) mg/dL Total Bilirubin (0.2-1.3) mg/dL AST (17-59) U/L ALT (21-72) U/L Alkaline Phosphatase (38-126) U/L Troponin I <0.012 (0.000-0.034) ng/mL Total Protein (6.3-8.2) g/dL Albumin (3.5-5.0) g/dL Lipase (23-300) U/L - EKG Data EKG Comments: Ventricular rate 77, NJ interval 182, QRS 98, QT/QTC 390/441 no concern for acute ischemia. (Juan Carlos Orellana) Disposition <Maykel Pruitt - Last Filed: 12/23/18 20:23> Is patient prescribed a controlled substance at d/c from ED?: No <Juan Carlos Orellana - Last Filed: 12/23/18 21:50> Clinical Impression: Abdominal pain Disposition: ADMITTED IP TO THIS HOSP Condition: Serious
[2018-12-23 18:46] LABS: Basophils % (A) 0 %; Eosinophils # (A) 0.1 k/uL (0-0.7); Eosinophils % (A) 1 %; HCT 44.9 % (39.0-53.0); HGB 14.8 gm/dL (13.0-17.5); Lymphocytes # (A) 0.9 k/uL (1.0-4.8); Lymphocytes % (A) 17 %; MCH 28.7 pg (25.0-35.0); MCHC 32.9 g/dL (31.0-37.0); MCV 87.1 fL (80.0-100.0); Mean Platelet Volume 7.2; Monocytes # (A) 0.6 k/uL (0-1.0); Monocytes % (A) 11 %; Neutrophils # (A) 3.5 k/uL (1.3-7.7); Neutrophils % (A) 67 %; Platelet Count 131 k/uL (150-450); RBC 5.15 m/uL (4.30-5.90); RDW 14.3 % (11.5-15.5); WBC 5.2 k/uL (3.8-10.6)
[2018-12-23 18:56] LABS: ALT 174 U/L (21-72); AST 105 U/L (17-59); Albumin 3.3 g/dL (3.5-5.0); Alkaline Phosphatase 194 U/L (38-126); Anion Gap 7 mmol/L; Blood Urea Nitrogen 15 mg/dL (9-20); Calcium 8.7 mg/dL (8.4-10.2); Carbon Dioxide 27 mmol/L (22-30); Chloride 104 mmol/L (98-107); Glucose 76 mg/dL (74-99); Lipase 254 U/L (23-300); Potassium 4.1 mmol/L (3.5-5.1); Sodium 138 mmol/L (137-145); Total Bilirubin 1.7 mg/dL (0.2-1.3); Total Protein 6.1 g/dL (6.3-8.2)
[2018-12-23 19:02] LABS: D-Dimer 0.49 mg/L FEU (<0.60); Partial Thromboplastin Time 23.4 sec (22.0-30.0); Prothrombin Time 10.6 sec (9.0-12.0)
[2018-12-23 19:23] LABS: Appearance,Urine Clear (Clear); Bilirubin,Urine 1+ (Negative); Blood,Urine Negative (Negative); Color,Urine Yellow; Glucose,Urine (UA) Negative (Negative); Ketones,Urine 1+ (Negative); Leukocyte Esterase,Urine Negative (Negative); Mucus,Urine Rare /hpf; Nitrite,Urine Negative (Negative); Protein,Urine 1+ (Negative); RBC,Urine <1 /hpf (0-5); Specific Gravity,Urine 1.019 (1.001-1.035); WBC,Urine 1 /hpf (0-5)
--- NOTE | 2018-12-23 19:35 | CT ---
EXAMINATION TYPE: CT abdomen pelvis w con DATE OF EXAM: 12/23/2018 COMPARISON: None HISTORY: Right upper quadrant pain x [address] DLP: 916.7 mGycm Automated exposure control for dose reduction was used. TECHNIQUE: Helical acquisition of images was performed from the lung bases through the pelvis. CONTRAST: Performed without Oral Contrast and with IV Contrast, patient injected with 100 mL of Isovue 300. FINDINGS: Lung bases are clear. There is no pleural effusion. Heart size is normal. There is no pericardial eff usion. There is extensive heterogeneity throughout the liver. There appears to be multiple vertical-s ized hypodense foci in the liver. The pancreas appears normal. There are clips from cholecystectomy. Spleen appears normal. Stomach appears normal. There is no adrenal mass. Kidneys show satisfactory contrast opacification. There are multiple right- sided renal cortical cysts that measure up to 2.5 cm. There is 1 cm calculus lower pole left kidney. There is mild vascular calcification. There is no hydronephrosis. Ureters are not dilated. There is n o retroperitoneal adenopathy. Bladder distends smoothly. Prostate measures 5 cm. There is no inguinal hernia. There is no free fluid in the pelvis. There are numerous diverticula in the sigmoid colon. T here is no sign of diverticulitis. There is no mesenteric edema. There is no sign of free air. There is no ascites. There is 14 mm superior mesenteric lymph node. The re is a second similar sized adjacent mesenteric lymph node. I see no adenopathy within the small bow el mesentery. There are spondylotic changes in the lumbar spine. I see no bony destructive process. A ppendix appears normal. IMPRESSION: EXTENSIVE INFILTRATIVE PROCESS IN THE LIVER SUGGESTIVE OF METASTATIC DISEASE. TWO ENLARGED MESENTERIC LYMPH NODES. NONOBSTRUCTING LEFT RENAL CALCULUS. MULTIPLE RIGHT RENAL CORTICA L CYSTS.
[2018-12-23] MEDS ORDERED: NALOXONE 0.4 MG/ML 1 ML VIAL IV PRN (21:01)
[2018-12-23 21:45] VITALS: BMI 31.1
[2018-12-23 21:55] VITALS: RESP 16
[2018-12-23] MEDS ORDERED: NITROGLYCERIN SL TABS 0.4 MG TAB SUBLINGUAL PRN (22:08)
[2018-12-23] MEDS ORDERED: ASPIRIN 325 MG TAB PO SCH (22:15)
[2018-12-23] MEDS: SODIUM CHLORIDE 0.9% 1,000 ML IV SCH (22:39)
[2018-12-23] MEDS: FAMOTIDINE 20 MG TAB PO SCH (22:56)
[2018-12-24] MEDS: MORPHINE SULFATE 4 MG/ML SYRINGE IV PRN ×4 (01:13→20:25)
[2018-12-24] MEDS: SODIUM CHLORIDE 0.9% 1,000 ML IV SCH (08:35)
[2018-12-24] MEDS: ISOSORBIDE MONONITRATE ER 30 MG TAB.ER.24H PO SCH (08:36)
[2018-12-24] MEDS: ATORVASTATIN 40 MG TAB PO SCH (08:36)
[2018-12-24] MEDS: LOSARTAN 50 MG TAB PO SCH (08:37)
[2018-12-24] MEDS: METOPROLOL SUCCINATE (ER) 25 MG TAB.ER.24H PO SCH (08:37)
[2018-12-24] MEDS: FAMOTIDINE 20 MG TAB PO SCH ×2 (08:37→20:25)
[2018-12-24 08:49] LABS: Glucose,Whole Blood 139 mg/dL (75-99)
--- NOTE | 2018-12-24 10:52 | P.GSCN ---
History of Present Illness Consult date: 12/24/18 Reason for Consult: Abdominal pain History of present illness: 63-year-old male comes to the hospital complaining of right-sided abdominal pain . Patient points to the right upper quadrant and right mid abdomen. Pain is been going on for the last several days. Slight decrease in appetite. No nausea or vomiting. No change in the color of his skin urine or stool. Denies fevers. No history of similar events. Patient had a CAT scan showing significantly abnormal enhancement of the liver. Possibility of metastatic disease per radiology. Patient's last colonoscopy 2-3 years ago. That was reportedly normal. 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 Patient with history of previous cholecystectomy 15-20 years ago. Patient's liver enzymes slightly elevated. 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 Past Anesthesia/Blood Transfusion Reactions: No Reported Reaction Date of Last Stent Placement:: 2004 Past Psychological History: No Psychological Hx Reported Smoking Status: Former smoker - Past Family History Mother Family Medical History: Cancer Additional Family Medical History / Comment(s): Mother had cervical cancer and lung cancer. She at the age of 43yrs. Father Family Medical History: Cancer Additional Family Medical History / Comment(s): Father had stomach cancer. He at the age of 78yrs. Brother(s) Family Medical History: Cancer Additional Family Medical History / Comment(s): Brother had skin cancer. He is living. Sister(s) Family Medical History: Cancer Additional Family Medical History / Comment(s): Sister had thyroid cancer. She is living Medications and Allergies Home Medications Medication Instructions Recorded Confirmed Type Famotidine [Pepcid] 20 mg PO BID 04/21/15 12/23/18 History Losartan [Cozaar] 50 mg PO DAILY 04/21/15 12/23/18 History Rosuvastatin Calcium [Crestor] 20 mg PO AC-[id number] 04/21/15 12/23/18 History Nitroglycerin Sl Tabs [Nitrostat] 0.4 mg SUBLINGUAL Q5M PRN #25 tab 05/27/16 12/23/18 Rx Metoprolol Succinate (ER) [Toprol 25 mg PO DAILY 06/08/18 12/23/18 History XL] Famotidine [Pepcid] 12/23/18 History Isosorbide Mononitrate ER [Imdur] 30 mg PO DAILY 12/23/18 12/23/18 History glyBURIDE/METFORMIN HCL 1 tab PO DAILY 12/23/18 12/23/18 History [Glucovance 5-500 mg] Allergies Allergy/AdvReac Type Severity Reaction Status Date / Time No Known Allergies Allergy Verified 12/23/18 20:59 Surgical - Exam Vital Signs Temp Pulse Resp BP Pulse Ox 97.6 F 88 16 134/74 98 12/23/18 18:10 12/23/18 18:10 12/23/18 18:10 12/23/18 18:10 12/23/18 18:10 Physical exam: General: Well-developed, well-nourished HEENT: Normocephalic, sclerae nonicteric Abdomen: Mild right upper quadrant tenderness, nondistended Extremities: No edema Neuro: Alert and oriented Results - Labs 12/23/18 18:32 12/23/18 18:32 Abnormal Lab Results - Last 24 Hours (Table) 12/23/18 12/23/18 12/23/18 Range/Units 18:32 18:32 Unknown Plt Count 131 L (150-450) k/uL Lymphocytes # 0.9 L (1.0-4.8) k/uL POC Glucose (mg/dL) (75-99) mg/dL Total Bilirubin 1.7 H (0.2-1.3) mg/dL AST 105 H (17-59) U/L ALT 174 H (21-72) U/L Alkaline Phosphatase 194 H (38-126) U/L Total Protein 6.1 L (6.3-8.2) g/dL Albumin 3.3 L (3.5-5.0) g/dL Urine Protein 1+ H (Negative) Urine Ketones 1+ H (Negative) Urine Bilirubin 1+ H (Negative) Urine Mucus Rare H (None) /hpf 12/24/18 Range/Units 08:41 Plt Count (150-450) k/uL Lymphocytes # (1.0-4.8) k/uL POC Glucose (mg/dL) 139 H (75-99) mg/dL Total Bilirubin (0.2-1.3) mg/dL AST (17-59) U/L ALT (21-72) U/L Alkaline Phosphatase (38-126) U/L Total Protein (6.3-8.2) g/dL Albumin (3.5-5.0) g/dL Urine Protein (Negative) Urine Ketones (Negative) Urine Bilirubin (Negative) Urine Mucus (None) /hpf Diabetes panel 12/23/18 Range/Units 18:32 Sodium 138 (137-145) mmol/L Potassium 4.1 (3.5-5.1) mmol/L Chloride 104 (98-107) mmol/L Carbon Dioxide 27 (22-30) mmol/L BUN 15 (9-20) mg/dL Creatinine 0.72 (0.66-1.25) mg/dL Glucose 76 (74-99) mg/dL Calcium 8.7 (8.4-10.2) mg/dL AST 105 H (17-59) U/L ALT 174 H (21-72) U/L Alkaline Phosphatase 194 H (38-126) U/L Total Protein 6.1 L (6.3-8.2) g/dL Albumin 3.3 L (3.5-5.0) g/dL Calcium panel 12/23/18 Range/Units 18:32 Calcium 8.7 (8.4-10.2) mg/dL Albumin 3.3 L (3.5-5.0) g/dL Pituitary panel 12/23/18 Range/Units 18:32 Sodium 138 (137-145) mmol/L Potassium 4.1 (3.5-5.1) mmol/L Chloride 104 (98-107) mmol/L Carbon Dioxide 27 (22-30) mmol/L BUN 15 (9-20) mg/dL Creatinine 0.72 (0.66-1.25) mg/dL Glucose 76 (74-99) mg/dL Calcium 8.7 (8.4-10.2) mg/dL Adrenal panel 12/23/18 Range/Units 18:32 Sodium 138 (137-145) mmol/L Potassium 4.1 (3.5-5.1) mmol/L Chloride 104 (98-107) mmol/L Carbon Dioxide 27 (22-30) mmol/L BUN 15 (9-20) mg/dL Creatinine 0.72 (0.66-1.25) mg/dL Glucose 76 (74-99) mg/dL Calcium 8.7 (8.4-10.2) mg/dL Total Bilirubin 1.7 H (0.2-1.3) mg/dL AST 105 H (17-59) U/L ALT 174 H (21-72) U/L Alkaline Phosphatase 194 H (38-126) U/L Total Protein 6.1 L (6.3-8.2) g/dL Albumin 3.3 L (3.5-5.0) g/dL Assessment and Plan (1) Abdominal pain Narrative/Plan: Patient with right upper quadrant abdominal pain and CAT scan showing infiltrative process of the liver. His liver enzymes are up slightly. Rec ommend oncology evaluation. Likely will require percutaneous liver biopsy. Check CEA level. We'll follow with you. Current Visit: Yes Status: Acute Code(s): R10.9 - UNSPECIFIED ABDOMINAL PAIN SNOMED Code(s): 61260140
[2018-12-24] MEDS ORDERED: RX INFO: IV CONTRAST WAS GIVEN 1 EACH MISC MISCELLANE PRN (11:01)
[2018-12-24] MEDS ORDERED: IOPAMIDOL-300 CONTRAST 30 ML VIAL (ORAL USE) PO PRN (11:01)
[2018-12-24 11:34] LABS: Glucose,Whole Blood 117 mg/dL (75-99)
[2018-12-24 14:15] LABS: Basophils % (A) 0 %; Eosinophils # (A) 0.1 k/uL (0-0.7); Eosinophils % (A) 1 %; HCT 39.7 % (39.0-53.0); HGB 12.6 gm/dL (13.0-17.5); Lymphocytes # (A) 0.8 k/uL (1.0-4.8); Lymphocytes % (A) 17 %; MCH 27.5 pg (25.0-35.0); MCHC 31.7 g/dL (31.0-37.0); MCV 86.8 fL (80.0-100.0); Mean Platelet Volume 7.7; Monocytes # (A) 0.4 k/uL (0-1.0); Monocytes % (A) 9 %; Neutrophils # (A) 3.2 k/uL (1.3-7.7); Neutrophils % (A) 70 %; Platelet Count 131 k/uL (150-450); RBC 4.58 m/uL (4.30-5.90); RDW 14.5 % (11.5-15.5); WBC 4.6 k/uL (3.8-10.6)
[2018-12-24 14:21] LABS: ALT 148 U/L (21-72); AST 94 U/L (17-59); Albumin 2.7 g/dL (3.5-5.0); Alkaline Phosphatase 159 U/L (38-126); Anion Gap 4 mmol/L; Blood Urea Nitrogen 15 mg/dL (9-20); Calcium 7.9 mg/dL (8.4-10.2); Carbon Dioxide 27 mmol/L (22-30); Chloride 102 mmol/L (98-107); Glucose 194 mg/dL (74-99); Potassium 4.2 mmol/L (3.5-5.1); Sodium 133 mmol/L (137-145); Total Bilirubin 1.7 mg/dL (0.2-1.3); Total Protein 5.3 g/dL (6.3-8.2)
[2018-12-24 17:10] LABS: Glucose,Whole Blood 190 mg/dL (75-99)
--- NOTE | 2018-12-24 19:31 | CT ---
EXAMINATION TYPE: CT chest w con DATE OF EXAM: 12/24/2018 COMPARISON: None HISTORY: Malignancy work up CT DLP: 406.8 mGycm Automated exposure control for dose reduction was used. CONTRAST: CT scan of the chest is performed with IV Contrast, patient injected with 100 mL of Isovue 300. FINDINGS: The lungs are clear. There is no evidence of a pulmonary mass. There is no pleural effusion. Heart si ze is normal. There is no pericardial effusion. There are small paratracheal lymph nodes that measure less than 1 cm. There are no hilar masses. Thoracic aorta is intact. The bony thorax is intact. Ther e is degenerative spurring in the thoracic spine. I see no focal bone destruction. Liver is large and heterogeneous consistent with multiple masses. There is a 4 mm calculus in the lef t kidney. IMPRESSION: Negative CT scan of the chest. No evidence of metastatic disease.
[2018-12-24] MEDS ORDERED: CALCIUM CARBONATE 500 MG CHEWABLE PO PRN (20:10)
[2018-12-24] MEDS ORDERED: MAGNESIUM HYDROXIDE 2,400 MG/10 ML CUP PO PRN (20:10)
[2018-12-24] MEDS ORDERED: ALPRAZolam 0.25 MG TAB PO PRN (20:10)
[2018-12-24] MEDS ORDERED: LACTULOSE 20 GM/30 ML CUP PO PRN (20:10)
[2018-12-24] MEDS ORDERED: MELATONIN 3 MG TABLET PO PRN (20:10)
[2018-12-24] MEDS ORDERED: ACETAMINOPHEN TAB 325 MG TAB PO PRN (20:10)
[2018-12-24 20:52] LABS: Glucose,Whole Blood 165 mg/dL (75-99)
--- NOTE | 2018-12-24 22:07 | HP ---
HISTORY AND PHYSICAL DATE OF SERVICE: 12/24/2018. PRESENTING COMPLAINT: Abdominal pain. HISTORY OF PRESENTING COMPLAINT: This is a 63-year-old patient of Dr. Chatman from [place] whose chronic stable medical conditions include coronary artery disease with angioplasty, stent to RCA in 2016, diabetes, hypertension, hyperlipidemia, osteoarthritis. The patient presents with 3 days of increasing pain in the right upper quadrant, sometimes sharp, and then it became more constant. It pretty much stayed around that area, worse with deep breathing. No fever. No chills. The patient's appetite is fair. No weight loss. It did not radiate. Pain has been constant. Presented for the same. A CT scan of the abdomen showed what appears to be put multiple masses in the liver. Patient's is present. REVIEW OF SYSTEMS: CONSTITUTIONAL: None. HEENT: None. RESPIRATORY: None. GASTROINTESTINAL: As above. GENITOURINARY: None. MUSCULOSKELETAL: Pain in joints. DERMATOLOGICAL, HEMATOLOGIC, LYMPHATICS: None. PSYCHIATRY: None. NEUROLOGICAL: None. 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 PAST SURGICAL HISTORY: Cardiac cath with stent in 2002, 2004, and 2016, umbilical hernia repair. SOCIAL HISTORY: . Retired former. Smoker for 33 years, stopped in 2001. Alcohol occasionally. 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 . FAMILY HISTORY: Father had stomach cancer. HOME MEDICATIONS: 1. Crestor 20 mg with breakfast. 2. Pepcid 20 mg b.i.d. 3. Glucovance 5/100 one tablet p.o. daily. 4. Nitrostat 0.4 sublingual every 5 p.r.n. 5. Toprol-XL 25 mg a day. 6. Cozaar 50 mg p.o. daily. 7. Imdur ER 30 mg p.o. daily. 8. Pepcid. ALLERGIES: None. PHYSICAL EXAMINATION: Vital signs on presentation, temperature 97.9, pulse 97, respirations 16, blood pressure 133/76, pulse ox 93% on room air. GENERAL APPEARANCE: Average built. BMI 31.2. Sitting up in a chair, not in distress. EYES: Pupils are equal. Conjunctivae normal. HEENT: External appearance of nose and ears normal. Oral cavity normal. NECK: JVD not raised. Mass not palpable. Respiratory effort normal. LUNGS: Fair air entry. CARDIOVASCULAR: First and second sounds normal. No edema. ABDOMEN: Right upper quadrant tenderness. No guarding or rigidity. Liver and spleen not palpable. LYMPHATIC: No lymph nodes palpable in the neck or axillae. PSYCHIATRY: Alert and oriented x3. Mood and affect normal. NEUROLOGIC: Pupils equal. Cranial nerves grossly intact. Power and sensation grossly intact. INVESTIGATIONS: White count 5.2, hemoglobin 14.8, platelets 131,000, potassium 4.1, AST 105, ALT 174. Albumin 3.3. EKG tracing personally reviewed by me shows normal sinus rhythm. CT scan of the chest negative. CT scan of the abdomen and pelvis with contrast, extensive infiltrative process in the liver suggestive of metastatic disease, nonobstructive left renal calculi, multiple right renal cortical cysts. ASSESSMENT: 1. This is a patient presented with 3 days of increased pain in the right upper abdomen. The CT scan of the abdomen shows liver with what appears to be reported as possible metastatic disease. I do not see any other evidence of primary as per CT scan chest and abdomen. Will send off a CEA and alpha fetoprotein. Patient will need a liver biopsy. 2. Coronary artery disease, prior history of stents. 3. Diabetes mellitus type 2 on oral hypoglycemic. 4. Essential hypertension. 5. Hyperlipidemia. 6. Primary osteoarthritis. 7. Moderate aortic stenosis, nonrheumatic. PLAN: General surgery was consulted. We will also consult Oncology. We will also consult Interventional Radiology for a liver biopsy order. Protime and PTT. We will make the patient n.p.o. after midnight. Care was discussed with the patient and . Questions were answered. MMODL / IJN: [id number] /
[2018-12-25 06:56] LABS: Glucose,Whole Blood 111 mg/dL (75-99)
[2018-12-25 07:37] LABS: Basophils % (A) 0 %; Eosinophils % (A) 1 %; HCT 38.6 % (39.0-53.0); HGB 12.4 gm/dL (13.0-17.5); Lymphocytes # (A) 0.9 k/uL (1.0-4.8); Lymphocytes % (A) 22 %; MCH 27.8 pg (25.0-35.0); MCV 86.7 fL (80.0-100.0); Mean Platelet Volume 7.6; Monocytes # (A) 0.5 k/uL (0-1.0); Monocytes % (A) 12 %; Neutrophils # (A) 2.6 k/uL (1.3-7.7); Neutrophils % (A) 62 %; Platelet Count 117 k/uL (150-450); RBC 4.45 m/uL (4.30-5.90); RDW 14.6 % (11.5-15.5); WBC 4.2 k/uL (3.8-10.6)
[2018-12-25 07:41] LABS: Partial Thromboplastin Time 24.2 sec (22.0-30.0); Prothrombin Time 10.9 sec (9.0-12.0)
[2018-12-25 07:43] LABS: ALT 135 U/L (21-72); AST 89 U/L (17-59); Albumin 2.8 g/dL (3.5-5.0); Alkaline Phosphatase 169 U/L (38-126); Anion Gap 4 mmol/L; Blood Urea Nitrogen 11 mg/dL (9-20); Calcium 8.2 mg/dL (8.4-10.2); Carbon Dioxide 29 mmol/L (22-30); Chloride 104 mmol/L (98-107); Glucose 116 mg/dL (74-99); Potassium 4.4 mmol/L (3.5-5.1); Sodium 137 mmol/L (137-145); Total Bilirubin 1.3 mg/dL (0.2-1.3); Total Protein 5.4 g/dL (6.3-8.2)
[2018-12-25] MEDS: SODIUM CHLORIDE 0.9% 1,000 ML IV SCH ×2 (08:15→08:21)
[2018-12-25] MEDS: MORPHINE SULFATE 4 MG/ML SYRINGE IV PRN (08:20)
[2018-12-25] MEDS: ISOSORBIDE MONONITRATE ER 30 MG TAB.ER.24H PO SCH (08:21)
[2018-12-25] MEDS: METOPROLOL SUCCINATE (ER) 25 MG TAB.ER.24H PO SCH (08:22)
[2018-12-25] MEDS: LOSARTAN 50 MG TAB PO SCH (08:22)
[2018-12-25] MEDS: ATORVASTATIN 40 MG TAB PO SCH (08:22)
[2018-12-25] MEDS: FAMOTIDINE 20 MG TAB PO SCH (08:22)
[2018-12-25] MEDS ORDERED: BISACODYL 5 MG TABLET.DR PO STA (10:47)
[2018-12-25 11:11] LABS: Glucose,Whole Blood 161 mg/dL (75-99)
[2018-12-25 11:49] VITALS: PULSE 78; TEMP 98.2
[2018-12-25 11:53] VITALS: BP 95/61
--- NOTE | 2018-12-25 12:51 | P.CONS ---
History of Present Illness - Reason for Consult Consult date: 12/25/18 Liver lesions Requesting physician: Carl Snell - Chief Complaint Right abdominal pain - History of Present Illness Mr. Charles is a very pleasant 63-year-old male who denies any recent acute changes in his health and describes himself as being in fair to good health. He comes in with c/o of abdominal pain, progressive over the last week, radiates from the right lower quadrant to the right upper quadrant, the feeling is of "constipation" and sharp but, denies constipation, diarrhea, change in color, calibur or consistency of stool, no bloating, early satiety, unintentional weight loss, difficulty swallowing, states appetite has been good. Patient had a colonoscopy 2-3 years ago was told that was all good, he has never had an EGD, his prostate exam is jo-xk-hxra-last one being just a few weeks ago. Patient does have a remote history of melanoma of the right eye, 20 years ago. Patient lost the eye do to the radiation procedure performed. 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 Past Anesthesia/Blood Transfusion Reactions: No Reported Reaction Date of Last Stent Placement:: 2004 Past Psychological History: No Psychological Hx Reported Smoking Status: Former smoker Past Alcohol Use History: None Reported Past Drug Use History: None Reported - Past Family History Mother Family Medical History: Cancer Additional Family Medical History / Comment(s): Mother had cervical cancer and lung cancer. She at the age of 43yrs. Father Family Medical History: Cancer Additional Family Medical History / Comment(s): Father had stomach cancer. He at the age of 78yrs. Brother(s) Family Medical History: Cancer Additional Family Medical History / Comment(s): Brother had skin cancer. He is living. Sister(s) Family Medical History: Cancer Additional Family Medical History / Comment(s): Sister had thyroid cancer. She is living Medications and Allergies Home Medications Medication Instructions Recorded Confirmed Type Famotidine [Pepcid] 20 mg PO BID 04/21/15 12/23/18 History Losartan [Cozaar] 50 mg PO DAILY 04/21/15 12/23/18 History Rosuvastatin Calcium [Crestor] 20 mg PO AC-BRKFST 04/21/15 12/23/18 History Nitroglycerin Sl Tabs [Nitrostat] 0.4 mg SUBLINGUAL Q5M PRN #25 tab 05/27/16 12/23/18 Rx Metoprolol Succinate (ER) [Toprol 25 mg PO DAILY 06/08/18 12/23/18 History XL] Isosorbide Mononitrate ER [Imdur] 30 mg PO DAILY 12/23/18 12/23/18 History glyBURIDE/METFORMIN HCL 1 tab PO DAILY 12/23/18 12/23/18 History [Glucovance 5-500 mg] Allergies Allergy/AdvReac Type Severity Reaction Status Date / Time No Known Allergies Allergy Verified 12/23/18 20:59 Physical Exam Vitals: Vital Signs Temp Pulse Resp BP Pulse Ox 12/25/18 11:43 98.2 F 78 16 95/61 91 L 12/25/18 05:00 98.7 F 72 16 110/68 93 L 12/24/18 21:00 98.5 F 85 16 134/76 93 L 12/24/18 15:52 16 Intake and Output 12/24/18 12/25/18 12/25/18 22:59 06:59 14:59 Other: Voiding Method Toilet Toilet # Voids 2 2 - Constitutional General appearance: average body habitus, cooperative, no acute distress - EENT Eyes: anicteric sclerae, EOMI, normal appearance ENT: hearing grossly normal, normal oropharynx - Neck Neck: no lymphadenopathy - Respiratory Respiratory: bilateral: CTA - Cardiovascular Rhythm: regular Heart sounds: normal: S1, S2 Abnormal Heart Sounds: systolic murmur, no diastolic murmur, no rub, no S3 Gallop, no S4 Gallop, no click, no other leg Peripheral Edema: bilateral: None - Gastrointestinal right umbilical fullness General gastrointestinal: no absent bowel sounds, decreased bowel sounds, no distended, no hepatomegaly, no hyperactive bowel sounds, organomegaly, no rigid, no scaphoid, soft, no splenomegaly, tenderness, no umbilical hernia, no ventral hernia Localized gastrointestinal: mass: RUQ (hepatomegaly vs hepatic flexure mass) - Integumentary Integumentary: normal turgor - Neurologic Neurologic: CNII-XII intact - Musculoskeletal Musculoskeletal: strength equal bilaterally - Psychiatric Psychiatric: A&O x's 3, appropriate affect, intact judgment & insight Results CBC & Chem 7: 12/25/18 06:24 12/25/18 06:24 Labs: Abnormal Lab Results - Last 24 Hours (Table) 12/24/18 12/24/18 12/24/18 Range/Units 13:50 13:50 17:09 Hgb 12.6 L (13.0-17.5) gm/dL Hct (39.0-53.0) % Plt Count 131 L (150-450) k/uL Lymphocytes # 0.8 L (1.0-4.8) k/uL Sodium 133 L (137-145) mmol/L Glucose 194 H (74-99) mg/dL POC Glucose (mg/dL) 190 H (75-99) mg/dL Calcium 7.9 L (8.4-10.2) mg/dL Total Bilirubin 1.7 H (0.2-1.3) mg/dL AST 94 H (17-59) U/L ALT 148 H (21-72) U/L Alkaline Phosphatase 159 H (38-126) U/L Total Protein 5.3 L (6.3-8.2) g/dL Albumin 2.7 L (3.5-5.0) g/dL 12/24/18 12/25/18 12/25/18 Range/Units 20:50 06:24 06:24 Hgb 12.4 L (13.0-17.5) gm/dL Hct 38.6 L (39.0-53.0) % Plt Count 117 L (150-450) k/uL Lymphocytes # 0.9 L (1.0-4.8) k/uL Sodium (137-145) mmol/L Glucose 116 H (74-99) mg/dL POC Glucose (mg/dL) 165 H (75-99) mg/dL Calcium 8.2 L (8.4-10.2) mg/dL Total Bilirubin (0.2-1.3) mg/dL AST 89 H (17-59) U/L ALT 135 H (21-72) U/L Alkaline Phosphatase 169 H (38-126) U/L Total Protein 5.4 L (6.3-8.2) g/dL Albumin 2.8 L (3.5-5.0) g/dL 12/25/18 12/25/18 Range/Units 06:54 11:10 Hgb (13.0-17.5) gm/dL Hct (39.0-53.0) % Plt Count (150-450) k/uL Lymphocytes # (1.0-4.8) k/uL Sodium (137-145) mmol/L Glucose (74-99) mg/dL POC Glucose (mg/dL) 111 H 161 H (75-99) mg/dL Calcium (8.4-10.2) mg/dL Total Bilirubin (0.2-1.3) mg/dL AST (17-59) U/L ALT (21-72) U/L Alkaline Phosphatase (38-126) U/L Total Protein (6.3-8.2) g/dL Albumin (3.5-5.0) g/dL CT scan - abdomen: report reviewed CT scan - chest: report reviewed CT scan - pelvis: report reviewed Assessment and Plan (1) Abnormal liver diagnostic imaging Current Visit: Yes Status: Acute Priority: High Code(s): R93.2 - ABNORMAL FINDINGS ON DX IMAGING OF LIVER AND BILIARY TRACT SNOMED Code(s): 148758283 (2) Abnormal LFTs (liver function tests) Current Visit: Yes Status: Acute Priority: High Code(s): R94.5 - ABNORMAL RESULTS OF LIVER FUNCTION STUDIES SNOMED Code(s): 968738411 Plan: Discussed with patient and his concerns for the CT findings. There is a liver infiltrate and some mesenteric lymphadenopathy. Need to have a liver biopsy for diagnostic purposes. Liver biopsy will be scheduled outpatient as patient was on aspirin regimen. Patient will follow-up post liver biopsy 5-7 days in the office for results. Agree with plan. Patient was instructed to use only Tylenol for pain, no aspirin, NSAIDs, ibuprofen etc. We discussed maximum dosing of Tylenol in 24 hours, staying ahead of the pain and utilizing positioning for comfort. Patient does have c ontact information for our office in case he is not able to keep his abdominal pain controlled with Tylenol. Patient complains of constipation. Ducolax ordered
--- NOTE | 2018-12-25 21:29 | DS ---
DISCHARGE SUMMARY DATE OF ADMISSION: 12/24/2018. DATE OF DISCHARGE: 12/25/2018. FINAL DIAGNOSES: 1. Right upper quadrant pain from liver with a mass. 2. Coronary artery disease, prior history of stents. 3. Diabetes mellitus type 2 on oral hypoglycemic. 4. Essential hypertension. 5. Hyperlipidemia. 6. Primary osteoarthritis. 7. Moderate aortic stenosis nonrheumatic. HOSPITAL COURSE: This patient presented with right upper quadrant pain. Abdominal CT scan showed what appeared to be infiltrates in the liver. Because patient is on aspirin biopsy cannot be done for [address] scan of the chest was rather unremarkable. The patient is seen by Dr. Wright and Dr. Guzman from Oncology. The patient will have an outpatient liver biopsy done and things will be taken from there. This was discussed with the patient and . PHYSICAL EXAMINATION: Temperature 98.2, pulse 78, respiration 16, blood pressure 95/61, pulse ox 91 percent on room air. Right upper quadrant tenderness. LABS: AST 135, ALT 169, total bilirubin 1.3. DISCHARGE MEDICATIONS: 1. Pepcid 20 mg b.i.d. 2. Cozaar 50 mg p.o. daily. 3. Crestor 20 mg before breakfast. 4. Nitrostat 0.4 sublingual q.5 p.r.n. 5. Toprol-XL 25 mg a day. 6. Imdur 30 mg daily. 7. Glucovance 5/100 one tablet p.o. daily. 8. Aspirin held. Liver biopsies will be done as an outpatient on January 04, 2019 at 9:[address] Chatman in [place]. MMSHARONL / LEIDAN: [id number] /
== END 2018-12-25 14:00 | disposition home or self-care (01) | DRG 443 ==
LOC: EC 18:03 → 3NMEDONC 20:20 → OBSVTOIN 12-24 17:46
PROVIDERS: ADMIT Hospitalist; ATTEND Hospitalist
DX: K76.89 Other specified diseases of liver (principal); E11.9 Type 2 diabetes mellitus without complications; E78.5 Hyperlipidemia, unspecified; I10 Essential (primary) hypertension; I25.10 Atherosclerotic heart disease of native coronary artery without angina pectoris; I25.2 Old myocardial infarction; I35.0 Nonrheumatic aortic (valve) stenosis; K21.9 Gastro-esophageal reflux disease without esophagitis; R94.5 Abnormal results of liver function studies; M15.9 Polyosteoarthritis, unspecified; Z79.84 Long term (current) use of oral hypoglycemic drugs; Z79.899 Other long term (current) drug therapy; Z97.0 Presence of artificial eye; Z95.5 Presence of coronary angioplasty implant and graft; Z90.49 Acquired absence of other specified parts of digestive tract; Z87.891 Personal history of nicotine dependence; Z85.820 Personal history of malignant melanoma of skin; Z80.0 Family history of malignant neoplasm of digestive organs; Z80.1 Family history of malignant neoplasm of trachea, bronchus and lung; Z80.49 Family history of malignant neoplasm of other genital organs; Z80.8 Family history of malignant neoplasm of other organs or systems
CPT/HCPCS: 36415; 71260; 74177; 80053; 81001; 83605; 83690; 84484; 85025; 85379; 85610; 85730; 96361; 96374; 96375; 99285

== ENCOUNTER 2019-01-04 08:43 | Day surgery (SDC) | payer MEDICARE, OTHER ==
[~2019-01-04 08:43] MED LIST: ALPRAZolam 0.5 MG TAB PO ONE; HYDROmorphone 1 MG/ML 1 ML SYRINGE IVP PRN
[2019-01-04] MEDS ORDERED: HYDROmorphone 0.5 MG/0.5 ML SYRINGE IVP PRN (08:46)
[2019-01-04 09:08] VITALS: TEMP 97.8
[2019-01-04 09:19] LABS: Mean Platelet Volume 7.2; Platelet Count 209 k/uL (150-450)
[2019-01-04 09:24] LABS: INR 1.1 (<1.2); Prothrombin Time 11.4 sec (9.0-12.0)
--- NOTE | 2019-01-04 11:10 | US ---
EXAMINATION TYPE: US biopsy liver DATE OF EXAM: 01/04/2019 COMPARISON: CT scan 12/23/2018 HISTORY: Abnormal CT scan FINDINGS: The procedure was explained to the patient. The risks, complications including life-threatening blee ding, benefits, and alternatives were discussed with the patient in the patient's family and any ques tions were answered. Informed consent was obtained. Patient was placed supine on the ultrasound tab le and prepped and draped in the usual sterile fashion. All elements of maximal barrier and sterile and sterile technique utilized. Preliminary imaging demon strated no definite focal mass. There is diffuse abnormality and nodularity throughout the liver. Utilizing ultrasound guidance, 18-gauge introducer as part of the core biopsy system was placed and 2 2-gauge Chiba needle was placed into the liver through the introducer and 3 FNA samples were obtained . Additionally, two 18 gauge core samples were obtained. The patient was stable throughout the proc edure and remained stable upon discharge. IMPRESSION: 1. Note is made that the liver was diffusely abnormal with no localized focal lesion. Therefore a ran dom core biopsy was performed. Successful 18 gauge FNA and core biopsy of the liver.
[2019-01-04] MEDS ORDERED: SODIUM CHLORIDE 0.9% 1,000 ML IV SCH (12:15)
[2019-01-04 14:02] VITALS: RESP 18
[2019-01-04 14:47] VITALS: BP 116/71; PULSE 68
== END 2019-01-04 14:55 | disposition home or self-care (01) ==
LOC: RADPROMAIN 08:43
PROVIDERS: ATTEND Hospitalist
DX: C78.7 Secondary malignant neoplasm of liver and intrahepatic bile duct (principal)
CPT/HCPCS: 88305; 88173; 85049; 85610; 88342; 88307; 88341; 47000; 76942; J1170; 10005

== ENCOUNTER → 2019-01-12 | Outpatient (CLI) | payer MEDICARE, OTHER ==
--- NOTE | 2019-01-13 19:50 | MR ---
EXAMINATION TYPE: MR brain wo/w con DATE OF EXAM: 01/12/2019 COMPARISON: NONE HISTORY: Melanoma / Headaches TECHNIQUE: Multiplanar, multisequence images of the brain and brainstem is performed without and with IV contras t, utilizing 7.5 mL intravenous Gadavist . FINDINGS: Diffusion weighted images demonstrate no evidence of a recent infarct or other diffusion ab normality. There is no extra-axial fluid. The ventricular system and cisternal spaces are symmetric ally prominent compatible with mild degree age-related volume loss. Moderate burden nonspecific white matter changes seen as scattered foci of T2/FLAIR hyperintensity in the periventricular and subcorti trevin white matter. These do not enhance. Midline structures demonstrate normal morphology. The craniocervical junction appears within normal limits. Post contrast images demonstrate no abnormal enhancement. However there is a small suspected developmental venous anomaly within the deep white matter of the left parietal lobe on postcontrast image 19 through 21. The dural venous sinuses appear patent. The visualized sinuses are clear. Mucosa l hypertrophy is seen on the left. Ovoid hyperintense FLAIR 6 mm structure near the right pterygoid m usculature likely represents a small lymph node. Small rightward nasal septal spur is seen. Orbital p rosthesis is noted on the right. Abnormal enhancement is seen within the parietal bones such as on postcontrast image 23 on the left a nd 19 on the right. Although these areas of abnormal enhancement or curvilinear the demonstrate T1 hy perintensity on the T1 sagittal noncontrast enhanced sequence. Prominent dural vein is seen in the le ft frontal region on the left and this does not appear as leptomeningeal enhancement or pachymeningea l enhancement on the sagittal or coronal images. IMPRESSION: 1. No abnormal intraparenchymal enhancement to suggest intra-axial metastatic disease however there i s multifocal enhancement of the calvarium suspicious for calvarial metastasis within the diploic spac e. Nuclear medicine bone scan could be considered to assess for focal uptake in confirm the diagnosis . 2. Moderate burden nonspecific white matter change, likely on the basis of chronic microangiopathy (n onenhancing foci).
== END ==
LOC: RADMRIMAIN 18:00
PROVIDERS: ATTEND Internal Medicine Hematology & Oncology
DX: R90.89 Other abnormal findings on diagnostic imaging of central nervous system (principal); C43.9 Malignant melanoma of skin, unspecified
CPT/HCPCS: 70553; A9585

== ENCOUNTER → 2019-01-13 | Outpatient (CLI) | payer MEDICARE, OTHER ==
--- NOTE | 2019-01-15 16:25 | PE ---
Nuclear medicine PET/CT history: Melanoma, liver metastasis Patient received 10.8 mCi F-18 FDG intravenously in delayed whole-body scanning was performed. An att enuation correction CT, localization CT was also performed. Correlation to CT chest, CT abdomen pelvis 12/23/2018, 12/24/2018, ultrasound liver 01/04/2019 Neck and chest: There is no evident lung mass, no pleural or pericardial effusion. No mediastinal, ax illary, supraclavicular, or hilar adenopathy. Coronary artery calcifications are present. No suspicio us hypermetabolic uptake. ABDOMEN: Too numerous to count masses are scattered within the liver as noted on prior CT and ultraso und. There is suspicious hypermetabolic uptake, SUV as high as 9.9 within the posterior right lobe. T he liver is enlarged. Patient is post cholecystectomy. Uptake along the bowel is felt likely to be ph ysiologic. There is no pelvic adenopathy or free fluid. Osseous structures: Multiple foci are present throughout the skeleton, focus present in the proximal right humerus SUV 4.0. Left glenoid shows a focus of uptake with SUV 2.5, there are multiple foci sca ttered within the spine showing corresponding hypermetabolic uptake including a focus within the cerv ical spine at approximately C4-C5, the sternum shows a focus of uptake mild 1.8. Focus within the L5 vertebral body shows hypermetabolic uptake, SUV 5.4 also within the L2 vertebral body focus showing S UV 6.4, T12 vertebral body shows a focus with SUV 4.5. Bilateral proximal femur, mid diaphyseal left femur show foci of uptake. IMPRESSION: Metastatic disease.
== END ==
LOC: RADPETMAIN 15:42
PROVIDERS: ATTEND Internal Medicine Hematology & Oncology
DX: C43.8 Malignant melanoma of overlapping sites of skin (principal); N28.89 Other specified disorders of kidney and ureter
CPT/HCPCS: 78816; A9552

== ENCOUNTER → 2019-02-14 | Outpatient (CLI) | payer MEDICARE, OTHER ==
--- NOTE | 2019-02-14 10:50 | XR ---
EXAMINATION TYPE: XR chest 2V DATE OF EXAM: 02/14/2019 COMPARISON: 06/08/2018 TECHNIQUE: PA and lateral views submitted. HISTORY: Shortness of breath FINDINGS: The lungs are clear and there is no pneumothorax, pleural effusion, or focal pneumonia. Exam limite d by reduced inspiration. Arthropathy of the shoulders. Hypertrophic and degenerative change of the v ertebral column. Coarsened interstitium. IMPRESSION: 1. Coarsened central interstitium can be seen with bronchitis or interstitial pneumonitis correlate c linically..
--- NOTE | 2019-02-14 10:52 | XR ---
EXAMINATION TYPE: XR KUB DATE OF EXAM: 02/14/2019 COMPARISON: NONE HISTORY: Pain TECHNIQUE: One view abdominal series FINDINGS: The osseous structures are intact. The bowel gas pattern is nonspecific. Surgical clips in the gallb ladder fossa. Arthropathy of the hips and hypertrophic and degenerative change of the spine. Osseous structures are somewhat heterogeneous. Retained fecal debris seen throughout the colon. There are 3 less than 5 mm calculi in the region of the left renal hilum. Larger calcification overly ing the lower pole measures a 10 mm. Adjacent to 3 mm calcifications are noted. DeGraff on the right no definite suspicious calcifications. IMPRESSION: 1. Nonspecific abdomen correlate for constipation. 2. Left renal calculi. 3. Heterogeneous pattern to the osseous structures can be seen with metastatic disease correlate clin ically.
== END | disposition home or self-care (01) ==
LOC: RADXRMAIN 10:25
PROVIDERS: ATTEND Nurse Practitioner Adult Health
DX: N20.0 Calculus of kidney (principal); C43.9 Malignant melanoma of skin, unspecified; C79.51 Secondary malignant neoplasm of bone; G89.3 Neoplasm related pain (acute) (chronic)
CPT/HCPCS: 71046; 74018

== ENCOUNTER 2019-02-22 15:48 | Inpatient (IN) | payer MEDICARE, OTHER ==
--- NOTE | 2019-02-22 16:28 | ED ---
General Adult HPI - General Chief complaint: Recheck/Abnormal Lab/Rx Stated complaint: abnormal labs, sent from [facility] Time Seen by Provider: 02/22/19 16:02 Source: patient, family, RN notes reviewed Mode of arrival: ambulatory Limitations: no limitations - History of Present Illness Initial comments: Patient is a pleasant 63-year-old male presenting to the emergency Department with complaints of lab abnormality. Patient had blood work done with oncology today and told that his liver enzymes and pancreas enzymes are elevated. Patient was advised to come to the emergency department. Patient states he does have some abdominal fullness however this is fairly chronic for him. Patient has had increased fatigue recently. Patient also has had some ankle swelling. Rare cough. No chest pain. Patient does have known history of liver cancer wit h metastasis to the bone. No history of pancreatic problems. Patient is currently on immunotherapy. - Related Data Home Medications Medication Instructions Recorded Confirmed Famotidine [Pepcid] 20 mg PO BID 04/21/15 02/22/19 Rosuvastatin Calcium [Crestor] 20 mg PO AC-BRKFST 04/21/15 02/22/19 Metoprolol Succinate (ER) [Toprol 25 mg PO DAILY 06/08/18 02/22/19 XL] Isosorbide Mononitrate ER [Imdur] 30 mg PO DAILY 12/23/18 02/22/19 Acetaminophen [Tylenol Extra 500 mg PO Q4H PRN 01/04/19 02/22/19 Strength] Aspirin 325 mg PO DAILY 01/04/19 02/22/19 Furosemide [Lasix] 40 mg PO DAILY 02/22/19 02/22/19 HYDROcodone/APAP 5-325MG [[place] 1 tab PO Q6H PRN 02/22/19 02/22/19 5-325] Potassium Chloride ER [K-Dur 20] 20 meq PO DAILY 02/22/19 02/22/19 Prochlorperazine [Compazine] 10 mg PO Q6H PRN 02/22/19 02/22/19 glyBURIDE/METFORMIN HCL 0.5 tab PO BID 02/22/19 02/22/19 [Glucovance 5-500 mg] Previous Rx's Medication Instructions Recorded Nitroglycerin Sl Tabs [Nitrostat] 0.4 mg SUBLINGUAL Q5M PRN #25 tab 05/27/16 Allergies Allergy/AdvReac Type Severity Reaction Status Date / Time No Known Allergies Allergy Verified 02/22/19 16:35 Review of Systems ROS Statement: Those systems with pertinent positive or pertinent negative responses have been documented in the HPI. ROS Other: All systems not noted in ROS Statement are negative. 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 Past Anesthesia/Blood Transfusion Reactions: No Reported Reaction Date of Last Stent Placement:: 2004 Past Psychological History: No Psychological Hx Reported Smoking Status: Former smoker Past Alcohol Use History: None Reported - Past Family History Mother Family Medical History: Cancer Additional Family Medical History / Comment(s): Mother had cervical cancer and lung cancer. She at the age of 43yrs. Father Family Medical History: Cancer Additional Family Medical History / Comment(s): Father had stomach cancer. He at the age of 78yrs. Brother(s) Family Medical History: Cancer Additional Family Medical History / Comment(s): Brother had skin cancer. He is living. Sister(s) Family Medical History: Cancer Additional Family Medical History / Comment(s): Sister had thyroid cancer. She is living General Exam Limitations: no limitations General appearance: alert, in no apparent distress Head exam: Present: atraumatic Eye exam: Present: other (Prosthetic right eye) ENT exam: Present: normal oropharynx Neck exam: Present: normal inspection Respiratory exam: Present: normal lung sounds bilaterally. Absent: respiratory distress, wheezes Cardiovascular Exam: Present: regular rate, normal rhythm GI/Abdominal exam: Present: soft, tenderness (Mild upper abdomen tenderness) Extremities exam: Present: pedal edema (+1 bilateral). Absent: calf tenderness Back exam: Present: normal inspection Neurological exam: Present: alert Psychiatric exam: Present: normal affect, normal mood Skin exam: Present: normal color Course Vital Signs 02/22/19 02/22/19 15:58 19:14 Temperature 97.5 F L 98 F Pulse Rate 95 87 Respiratory 18 18 Rate Blood Pressure 125/85 123/84 O2 Sat by Pulse 93 L 94 L Oximetry EKG Findings - EKG Comments: EKG Findings:: Normal sinus rhythm at 85. OR 172. QRS 94. QT 400. QTc 436. Left axis. Inferior Q waves, borderline. No acute ST change. Medical Decision Making - Medical Decision Making Case was discussed again with Dr. Vazquez who did speak with one of her colleagues and has concern for auto immune secondary to acute true to and does also request prednisone 60 mg daily be started. Case was also discussed with Dr. billy, who will admit covering for Dr. Rodríguez. GI will be placed on consult. Computed tomography scan was ordered. Patient updated. - Lab Data Result diagrams: 02/22/19 16:45 02/22/19 16:45 Lab Results 02/22/19 02/22/19 02/22/19 Range/Units 16:45 16:45 16:45 WBC 4.7 (3.8-10.6) k/uL RBC 4.77 (4.30-5.90) m/uL Hgb 13.4 (13.0-17.5) gm/dL Hct 41.4 (39.0-53.0) % MCV 86.7 (80.0-100.0) fL MCH 28.2 (25.0-35.0) pg MCHC 32.5 (31.0-37.0) g/dL RDW 19.1 H (11.5-15.5) % Plt Count 156 (150-450) k/uL Neutrophils % (Manual) 55 % Lymphocytes % (Manual) 36 % Monocytes % (Manual) 9 % Neutrophils # (Manual) 2.59 (1.3-7.7) k/uL Lymphocytes # (Manual) 1.69 (1.0-4.8) k/uL Monocytes # (Manual) 0.42 (0-1.0) k/uL Nucleated RBCs 0 (0-0) /100 WBC Manual Slide Review Performed Polychromasia Present Hypochromasia Slight Poikilocytosis Slight Anisocytosis Slight PT (9.0-12.0) sec INR (<1.2) APTT (22.0-30.0) sec Sodium 137 (137-145) mmol/L Potassium 4.2 (3.5-5.1) mmol/L Chloride 108 H (98-107) mmol/L Carbon Dioxide 22 (22-30) mmol/L Anion Gap 7 mmol/L BUN 16 (9-20) mg/dL Creatinine 1.03 (0.66-1.25) mg/dL Est GFR (CKD-EPI)AfAm 88 (>60 ml/min/1.73 sqM) Est GFR (CKD-EPI)NonAf 76 (>60 ml/min/1.73 sqM) Glucose 105 H (74-99) mg/dL Plasma Lactic Acid Efren 2.3 H* (0.7-2.0) mmol/L Calcium 8.0 L (8.4-10.2) mg/dL Magnesium 1.7 (1.6-2.3) mg/dL Total Bilirubin 3.8 H (0.2-1.3) mg/dL AST 203 H (17-59) U/L ALT 55 (21-72) U/L Alkaline Phosphatase 410 H (38-126) U/L Creatine Kinase 69 (55-170) U/L Troponin I (0.000-0.034) ng/mL Total Protein 6.7 (6.3-8.2) g/dL Albumin 2.7 L (3.5-5.0) g/dL Amylase 125 H (30-110) U/L Lipase 863 H (23-300) U/L Urine Color Urine Appearance (Clear) Urine pH (5.0-8.0) Ur Specific [place] (1.001-1.035) Urine Protein (Negative) Urine Glucose (UA) (Negative) Urine Ketones (Negative) Urine Blood (Negative) Urine Nitrite (Negative) Urine Bilirubin (Negative) Urine Urobilinogen (<2.0) mg/dL Ur Leukocyte Esterase (Negative) Urine RBC (0-5) /hpf Urine WBC (0-5) /hpf Urine Mucus (None) /hpf 02/22/19 02/22/19 02/22/19 Range/Units 16:45 16:45 18:13 WBC (3.8-10.6) k/uL RBC (4.30-5.90) m/uL Hgb (13.0-17.5) gm/dL Hct (39.0-53.0) % MCV (80.0-100.0) fL MCH (25.0-35.0) pg MCHC (31.0-37.0) g/dL RDW (11.5-15.5) % Plt Count (150-450) k/uL Neutrophils % (Manual) % Lymphocytes % (Manual) % Monocytes % (Manual) % Neutrophils # (Manual) (1.3-7.7) k/uL Lymphocytes # (Manual) (1.0-4.8) k/uL Monocytes # (Manual) (0-1.0) k/uL Nucleated RBCs (0-0) /100 WBC Manual Slide Review Polychromasia Hypochromasia Poikilocytosis Anisocytosis PT 12.4 H (9.0-12.0) sec INR 1.2 H (<1.2) APTT 31.1 H (22.0-30.0) sec Sodium (137-145) mmol/L Potassium (3.5-5.1) mmol/L Chloride (98-107) mmol/L Carbon Dioxide (22-30) mmol/L Anion Gap mmol/L BUN (9-20) mg/dL Creatinine (0.66-1.25) mg/dL Est GFR (CKD-EPI)AfAm (>60 ml/min/1.73 sqM) Est GFR (CKD-EPI)NonAf (>60 ml/min/1.73 sqM) Glucose (74-99) mg/dL Plasma Lactic Acid Efren (0.7-2.0) mmol/L Calcium (8.4-10.2) mg/dL Magnesium (1.6-2.3) mg/dL Total Bilirubin (0.2-1.3) mg/dL AST (17-59) U/L ALT (21-72) U/L Alkaline Phosphatase (38-126) U/L Creatine Kinase (55-170) U/L Troponin I <0.012 (0.000-0.034) ng/mL Total Protein (6.3-8.2) g/dL Albumin (3.5-5.0) g/dL Amylase (30-110) U/L Lipase (23-300) U/L Urine Color Light Red Urine Appearance Clear (Clear) Urine pH 5.5 (5.0-8.0) Ur Specific [place] 1.014 (1.001-1.035) Urine Protein 1+ H (Negative) Urine Glucose (UA) Negative (Negative) Urine Ketones Negative (Negative) Urine Blood Negative (Negative) Urine Nitrite Negative (Negative) Urine Bilirubin 2+ H (Negative) Urine Urobilinogen 3.0 (<2.0) mg/dL Ur Leukocyte Esterase Negative (Negative) Urine RBC 3 (0-5) /hpf Urine WBC 3 (0-5) /hpf Urine Mucus Rare H (None) /hpf Disposition Clinical Impression: Pancreatitis Disposition: ADMITTED IP TO THIS HOSP Is patient prescribed a controlled substance at d/c from ED?: No Referrals: Vinh Chatman MD [Primary Care Provider] - 1-2 days Decision Time: 19:20
[2019-02-22 17:07] LABS: INR 1.2 (<1.2); Partial Thromboplastin Time 31.1 sec (22.0-30.0); Prothrombin Time 12.4 sec (9.0-12.0)
[2019-02-22 17:08] LABS: Albumin 2.7 g/dL (3.5-5.0); Magnesium 1.7 mg/dL (1.6-2.3); Potassium 4.2 mmol/L (3.5-5.1); Total Bilirubin 3.8 mg/dL (0.2-1.3); Total Protein 6.7 g/dL (6.3-8.2)
--- NOTE | 2019-02-22 17:12 | XR ---
EXAMINATION TYPE: XR chest 2V DATE OF EXAM: 02/22/2019 COMPARISON: 02/14/2019 HISTORY: Weakness TECHNIQUE: Frontal and lateral views of the chest are obtained. FINDINGS: Heart and mediastinum are normal. Lungs are clear. Costophrenic angles are clear. Bony tho rax is intact. IMPRESSION: Normal chest. No change
[2019-02-22 17:21] LABS: Anisocytosis Slight; HCT 41.4 % (39.0-53.0); HGB 13.4 gm/dL (13.0-17.5); Hypochromasia Slight; MCH 28.2 pg (25.0-35.0); MCHC 32.5 g/dL (31.0-37.0); MCV 86.7 fL (80.0-100.0); Mean Platelet Volume 9.6; Platelet Count 156 k/uL (150-450); Poikilocytosis Slight; RBC 4.77 m/uL (4.30-5.90); RDW 19.1 % (11.5-15.5); WBC 4.7 k/uL (3.8-10.6)
[2019-02-22 17:56] LABS: Lymphocytes # (M) 1.69 k/uL (1.0-4.8); Monocytes # (M) 0.42 k/uL (0-1.0); Neutrophils # (M) 2.59 k/uL (1.3-7.7); Neutrophils % (M) 55 %; Nucleated Red Blood Cells 0 /100 WBC (0-0); Polychromasia Present; Total Cells Counted 100
[2019-02-22 18:47] LABS: Appearance,Urine Clear (Clear); Bilirubin,Urine 2+ (Negative); Blood,Urine Negative (Negative); Color,Urine Light Red; Glucose,Urine (UA) Negative (Negative); Ketones,Urine Negative (Negative); Leukocyte Esterase,Urine Negative (Negative); Mucus,Urine Rare /hpf; Nitrite,Urine Negative (Negative); PH, Urine 5.5 (5.0-8.0); Protein,Urine 1+ (Negative); RBC,Urine 3 /hpf (0-5); Specific Gravity,Urine 1.014 (1.001-1.035); WBC,Urine 3 /hpf (0-5)
[2019-02-22] MEDS ORDERED: NALOXONE 0.4 MG/ML 1 ML VIAL IV PRN (19:13)
[2019-02-22] MEDS ORDERED: predniSONE 20 MG TAB PO STA (19:17)
[2019-02-22] MEDS: SODIUM CHLORIDE 0.9% 1,000 ML IV SCH (19:35)
--- NOTE | 2019-02-22 20:14 | CT ---
EXAMINATION TYPE: CT abdomen pelvis wo con DATE OF EXAM: 02/22/2019 COMPARISON: 12/23/2018 HISTORY: Abnormal labs. History of liver cancer. CT DLP: 656.2 mGycm Automated exposure control for dose reduction was used. TECHNIQUE: Helical acquisition of images was performed from the lung bases through the pelvis. FINDINGS: Lung bases are clear. There is no pleural effusion. There is minimal reticular density left lower lob e consistent with subsegmental atelectasis. Liver is markedly enlarged and measures 30.5 cm in length. Spleen is enlarged and measures 14 cm. Sto mach appears normal. There is no pancreatic mass. There are clips from cholecystectomy. There is no f ocal liver defect. There is no adrenal mass. Kidneys show no hydronephrosis. There is 3 cm cortical cyst lower pole righ t kidney. There is a 1 cm calculus lower pole left kidney. There is 5 mm calculus at the posterior le ft kidney that is possibly vascular. There are multiple right renal cortical cysts that measure up to 3 cm. There is no retroperitoneal adenopathy. Bladder distends smoothly. There is prostatic calcification. Prostate measures 4.6 cm. There is no inguinal hernia. There are multiple diverticula in the sigmoid colon. The appendix appears normal. There is no sign of a bowel obstruction. There is no mesenteric e cat. There are some mesenteric lymph nodes that measure up to 1.2 cm. There is no ascites. There is no sign of free air. Lumbar vertebra appear intact. There are spondylotic change. I see no bony destructive process. Bony pelvis appears intact. IMPRESSION: THERE IS SEVERE HEPATOMEGALY THAT APPEARS WORSE THAN LAST CT SCAN. THERE IS SOME HETEROGENEITY IN THE LIVER THAT COULD RELATE TO METASTATIC DISEASE. EXAM LIMITED WITHOUT CONTRAST. NO DILATED DUCTS. MILD SPLENOMEGALY. LIVER MEASURES 24 CM ON OLD EXAM AND NOW MEASURES MORE THAN 30 CM. NONOBSTRUCTING LEFT RENAL CALCULUS UNCHANGED. NONSPECIFIC MESENTERIC LYMPH NODES. MILD SIGMOID DIVERT ICULOSIS WITHOUT DIVERTICULITIS.
[2019-02-22 21:30] VITALS: BMI 30.4
[2019-02-22] MEDS ORDERED: PROCHLORPERAZINE 10 MG TAB PO PRN (22:17)
[2019-02-22] MEDS ORDERED: NITROGLYCERIN SL TABS 0.4 MG TAB SUBLINGUAL PRN (22:18)
[2019-02-22] MEDS ORDERED: HYDROcodone/APAP 5-325MG 1 EACH TAB PO PRN (22:19)
[2019-02-22] MEDS ORDERED: ACETAMINOPHEN TAB 500 MG TAB PO PRN (22:20)
[2019-02-22] MEDS: FAMOTIDINE 20 MG TAB PO SCH (23:25)
[2019-02-22] MEDS: ZOLPIDEM 5 MG TAB PO PRN (23:26)
[2019-02-23] MEDS: SODIUM CHLORIDE 0.9% 1,000 ML IV SCH ×2 (05:20→16:41)
[2019-02-23 07:10] LABS: Glucose,Whole Blood 153 mg/dL (75-99)
[2019-02-23] MEDS: INSULIN ASPART (NovoLOG) 100 UNIT/ML VIAL SQ SCH ×4 (08:26→19:51)
[2019-02-23] MEDS: ISOSORBIDE MONONITRATE ER 30 MG TAB.ER.24H PO SCH (08:35)
[2019-02-23] MEDS: ATORVASTATIN 20 MG TAB PO SCH (08:35)
[2019-02-23] MEDS: FUROSEMIDE 40 MG TAB PO SCH (08:36)
[2019-02-23] MEDS: predniSONE 20 MG TAB PO SCH (08:36)
[2019-02-23] MEDS: METOPROLOL SUCCINATE (ER) 25 MG TAB.ER.24H PO SCH (08:36)
[2019-02-23] MEDS: FAMOTIDINE 20 MG TAB PO SCH ×2 (08:36→19:51)
[2019-02-23] MEDS: POTASSIUM CHLORIDE ER 20 MEQ TAB.ER PO SCH (08:38)
[2019-02-23 09:47] LABS: INR 1.2 (<1.2); Prothrombin Time 12.9 sec (9.0-12.0)
[2019-02-23 10:01] LABS: Albumin 2.8 g/dL (3.5-5.0); Calcium 7.8 mg/dL (8.4-10.2); Potassium 4.7 mmol/L (3.5-5.1); Total Bilirubin 4.8 mg/dL (0.2-1.3)
[2019-02-23 11:14] LABS: Glucose,Whole Blood 134 mg/dL (75-99)
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
[2019-02-23 17:17] LABS: Glucose,Whole Blood 275 mg/dL (75-99)
[2019-02-23] MEDS: PANTOPRAZOLE 40 MG TABLET PO SCH (18:13)
[2019-02-23 19:30] LABS: Glucose,Whole Blood 258 mg/dL (75-99)
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
[2019-02-23] MEDS: ZOLPIDEM 5 MG TAB PO PRN (22:06)
[2019-02-24] MEDS: SODIUM CHLORIDE 0.9% 1,000 ML IV SCH ×2 (04:30→11:35)
[2019-02-24 07:46] LABS: Anisocytosis Slight; Basophils % (A) 0 %; Eosinophils % (A) 0 %; HGB 13.4 gm/dL (13.0-17.5); Hypochromasia Slight; Lymphocytes # (A) 1.2 k/uL (1.0-4.8); Lymphocytes % (A) 13 %; MCH 28.3 pg (25.0-35.0); MCHC 31.1 g/dL (31.0-37.0); MCV 91.2 fL (80.0-100.0); Mean Platelet Volume 9.4; Monocytes # (A) 0.8 k/uL (0-1.0); Monocytes % (A) 9 %; Neutrophils # (A) 6.8 k/uL (1.3-7.7); Neutrophils % (A) 74 %; Platelet Count 189 k/uL (150-450); Poikilocytosis Slight; RBC 4.72 m/uL (4.30-5.90); RDW 18.4 % (11.5-15.5); WBC 9.2 k/uL (3.8-10.6)
[2019-02-24 08:10] LABS: Glucose,Whole Blood 130 mg/dL (75-99)
[2019-02-24 08:10] LABS: Albumin 2.5 g/dL (3.5-5.0); Calcium 7.7 mg/dL (8.4-10.2); Potassium 4.4 mmol/L (3.5-5.1); Total Bilirubin 4.1 mg/dL (0.2-1.3); Total Protein 6.3 g/dL (6.3-8.2)
[2019-02-24] MEDS: INSULIN ASPART (NovoLOG) 100 UNIT/ML VIAL SQ SCH ×2 (08:15→12:58)
[2019-02-24] MEDS: FAMOTIDINE 20 MG TAB PO SCH (08:16)
[2019-02-24] MEDS: ATORVASTATIN 20 MG TAB PO SCH (08:16)
[2019-02-24] MEDS: predniSONE 20 MG TAB PO SCH (08:16)
[2019-02-24] MEDS: POTASSIUM CHLORIDE ER 20 MEQ TAB.ER PO SCH (08:16)
[2019-02-24] MEDS: FUROSEMIDE 40 MG TAB PO SCH (08:16)
[2019-02-24] MEDS: PANTOPRAZOLE 40 MG TABLET PO SCH (08:16)
[2019-02-24] MEDS: ISOSORBIDE MONONITRATE ER 30 MG TAB.ER.24H PO SCH (08:16)
[2019-02-24] MEDS: METOPROLOL SUCCINATE (ER) 25 MG TAB.ER.24H PO SCH (08:17)
--- NOTE | 2019-02-24 09:14 | PN ---
PROGRESS NOTE DATE OF SERVICE: 02/24/2019 The patient is a 63-year-old pleasant white male who was recently diagnosed with metastatic melanoma involving the liver, which was found on liver biopsy about a month ago. He underwent 4 cycles of immunotherapy and was admitted to the hospital with decreased appetite, nausea, epigastric pain, not feeling well. He was seen in consultation yesterday for elevated LFTs and mild elevation of amylase and lipase. This morning, he is feeling better. He still has some epigastric discomfort. He denies further episodes of nausea, vomiting on a soft diet, tolerating well. He reports no fever, chills, or night sweats. PHYSICAL EXAMINATION: He appears comfortable. No apparent distress. VITAL SIGNS: Stable. Blood pressure is 122/89, pulse rate 90, temperature 97.8. HEENT examination unremarkable. Conjunctivae pink sclerae anicteric. Oral cavity no lesions. NECK: No JVD or lymph node enlargement. CHEST: Clear to auscultation. HEART: Regular rate and rhythm. ABDOMEN: Soft. Liver was palpable almost to the and extending into the left upper quadrant area. It was firm in consistency, slightly tender. EXTREMITIES: No pedal edema. SKIN no rashes. NEUROLOGIC: Alert and oriented x3. No focal deficits. LABS: From today WBC 9.2, hemoglobin 13.4, platelets are within normal limits. Basic metabolic panel is not available yet. As of yesterday, T bilirubin was 4.8, AST 207, ALT 60, alkaline phosphatase 393, and LDH 1630. Amylase and lipase at 140 and 631 respectively. IMPRESSION: 1. Metastatic malignant melanoma to the liver diagnosed one month ago. The patient undergoing immunotherapy, status post 4 cycles 3 weeks ago. 2. Massive hepatomegaly secondary to malignant melanoma/infiltration of the tumor. 3. Mild elevation of amylase and lipase appears to be nonspecific. No clinical evidence of acute pancreatitis. 4. Elevated LFTs secondary to malignant melanoma involving the liver. RECOMMENDATIONS: 1. Continue with symptomatic and supportive therapy. 2. Since the symptoms have improved, advance diet as tolerated. 3. No indication for any endoscopy intervention at the present time. 4. Discussed with the patient that the elevated LFTs and amylase and lipase are all related to metastatic malignant melanoma at this time, and no further workup is necessary. 5. We will follow him closely. Thank you for this consultation. MMODL / IJN: [id number] /
--- NOTE | 2019-02-24 09:52 | US ---
EXAMINATION TYPE: US venous doppler duplex LE DATE OF EXAM: 02/24/2019 8:12 AM COMPARISON: NONE CLINICAL HISTORY: edema canceer. No redness. No hx of blood clots. No leg pain. Not on blood thinn ers. SIDE PERFORMED: Bilateral TECHNIQUE: The lower extremity deep venous system is examined utilizing real time linear array sonog shane with graded compression, doppler sonography and color-flow sonography. VESSELS IMAGED: External Iliac Vein (EIV) Common Femoral Vein Deep Femoral Vein Greater Saphenous Vein * Femoral Vein Popliteal Vein Small Saphenous Vein * Proximal Calf Veins (* superficial vessels) Rouleaux flow seen in bilateral legs Right Leg: Negative for DVT Left Leg: Negative for DVT No popliteal fossa lesion is seen. IMPRESSION: THIS EXAMINATION IS NEGATIVE FOR DVT IN BOTH LEGS.
[2019-02-24 12:05] LABS: Glucose,Whole Blood 209 mg/dL (75-99)
[2019-02-24 12:53] VITALS: BP 128/75; PULSE 64; RESP 18; TEMP 97.5
--- NOTE | 2019-02-25 19:10 | P.DS ---
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 That'll explain patient's worsening LFTs, with some effect from immunotherapy. -Acute pancreatitis possibly induced by immunotherapy. Patient has mild abdominal discomfort. -Sigmoid diverticulosis, asymptomatic -Coronary artery disease and history of stent -This mellitus type II -Essential hypertension -hyperlipidemia -Moderate aortic stenosis, nontraumatic -Left renal calculus asymptomatic History of presenting complaint: This is a very pleasant 63-year-old patient of from [place]. Chronic stable medical conditions include coronary artery disease with stent, diabetes mellitus type 2, hypertension, hyperlipidemia, osteoarthritis, moderate aortic stenosis. Patient in November of this year had presented with right upper quadrant pain and was found to have liver with the mass. 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 Also had an MRI and a PET scan that showed positive metastatic involvement of the calvarium and to the bone across the body. Patient's first immunotherapy was 3 weeks ago. Second immunotherapy was due yesterday. Patient presents with not feeling well decreased appetite and nausea. As a bowel movement every day. As an outpatient patient's LFTs were found to be increased and pancreas enzymes was informed of increased. Patient does have some epigastric discomfort. No fever no chills. Patient was seen by GI and by oncology team. It was felt that patient's increased LFTs and elevated pancreatic numbers are probably secondary to immunotherapy. Patient's alkaline phosphatase probably elevated due to bony involvement. Patient otherwise stable. Was discussed with the patient and . Numbers will be followed clinically. Patient started on prednisone. Patient was told to take a soft low fat diet. Discussion discharge plannin minutes Consultations: Dr. pavel pham from GI Dr. Guzman from oncology Physical examination: VITAL SIGNS: 97.5, 64, 18, 128/75, 95% room air GENERAL: Sitting comfortable. EYES: Pupils equal. Conjunctiva pale HEENT: External appearance of nose and ears normal, oral cavity grossly normal. NECK: JVD not raised; masses not palpable. HEART: First and second heart sounds are normal; some edema. LUNGS: Respiratory rate normal; clear to auscultation. ABDOMEN: Soft, some distention, minimally tender, liver spleen not palpable, no masses palpable. PSYCH: Alert and oriented x3; mood and affect normal. Investigations, reviewed and clinical context White count is 4.7, hemoglobin 13.4, platelet 156, potassium 4.2, BUN 16, crit 1.03 Bilirubin 3.8, repeat 4.8 Alk phos 410, repeat 393 Lactate dehydrogenase 1630 Albumin 2.7 Amylase 125, repeat 114 Lipase 863, repeat 631 Computed tomography scan of the abdomen and pelvis-liver markedly enlarged spleen and lasted 14 cm multiple diverticula of the sigmoid colon Disposition: Home Patient Condition at Discharge: Stable Plan - Discharge Summary Discharge Rx Participant: Yes New Discharge Prescriptions: New predniSONE 0 mg PO DIRECTED #105 tab Continue Rosuvastatin Calcium [Crestor] 20 mg PO AC-BRKFST Famotidine [Pepcid] 20 mg PO BID Nitroglycerin Sl Tabs [Nitrostat] 0.4 mg SUBLINGUAL Q5M PRN #25 tab PRN Reason: Chest Pain Metoprolol Succinate (ER) [Toprol XL] 25 mg PO DAILY Isosorbide Mononitrate ER [Imdur] 30 mg PO DAILY Prochlorperazine [Compazine] 10 mg PO Q6H PRN PRN Reason: Nausea And Vomiting HYDROcodone/APAP 5-325MG [[place] 5-325] 1 tab PO Q6H PRN PRN Reason: Pain Furosemide [Lasix] 40 mg PO DAILY glyBURIDE/METFORMIN HCL [Glucovance 5-500 mg] 0.5 tab PO BID Potassium Chloride ER [K-Dur 20] 20 meq PO DAILY Discontinued Acetaminophen [Tylenol Extra Strength] 500 mg PO Q4H PRN PRN Reason: Pain Discharge Medication List Famotidine [Pepcid] 20 mg PO BID 04/21/15 [History] Rosuvastatin Calcium [Crestor] 20 mg PO AC-BRKFST 04/21/15 [History] Nitroglycerin Sl Tabs [Nitrostat] 0.4 mg SUBLINGUAL Q5M PRN #25 tab 05/27/16 [Rx] Metoprolol Succinate (ER) [Toprol XL] 25 mg PO DAILY 06/08/18 [History] Isosorbide Mononitrate ER [Imdur] 30 mg PO DAILY 12/23/18 [History] Furosemide [Lasix] 40 mg PO DAILY 02/22/19 [History] HYDROcodone/APAP 5-325MG [[place] 5-325] 1 tab PO Q6H PRN 02/22/19 [History] Potassium Chloride ER [K-Dur 20] 20 meq PO DAILY 02/22/19 [History] Prochlorperazine [Compazine] 10 mg PO Q6H PRN 02/22/19 [History] glyBURIDE/METFORMIN HCL [Glucovance 5-500 mg] 0.5 tab PO BID 02/22/19 [History] predniSONE 0 mg PO DIRECTED #105 tab 02/24/19 [Rx] Follow up Appointment(s)/Referral(s): Robert Guzman MD [STAFF PHYSICIAN] - 1 Week (The office was closed at the time of your discharge. Please call the office on 02/26/2019 to schedule your follow-up appointment.) Vinh Chatman MD [Primary Care Provider] - 1-2 days (The office was closed at the time of your discharge. Please call the office on 02/26/2019 to schedule your follow-up appointment.) Fernando Ko MD [STAFF PHYSICIAN] - 1 Week (The office was closed at the time of your discharge. Please call the office on 02/26/2019 to schedule your follow-up appointment.) Activity/Diet/Wound Care/Special Instructions: LFT and pancreatic enzymes - 3 days Discharge Disposition: HOME SELF-CARE
== END 2019-02-24 14:02 | disposition home or self-care (01) | DRG 439 ==
LOC: EC 15:48 → 3NMEDONC 19:13
PROVIDERS: ADMIT Hospitalist; ATTEND Hospitalist
DX: K85.80 Other acute pancreatitis without necrosis or infection (principal); C78.7 Secondary malignant neoplasm of liver and intrahepatic bile duct; C79.51 Secondary malignant neoplasm of bone; R16.0 Hepatomegaly, not elsewhere classified; E11.9 Type 2 diabetes mellitus without complications; E78.5 Hyperlipidemia, unspecified; I10 Essential (primary) hypertension; I25.10 Atherosclerotic heart disease of native coronary artery without angina pectoris; I25.2 Old myocardial infarction; I35.0 Nonrheumatic aortic (valve) stenosis; K21.9 Gastro-esophageal reflux disease without esophagitis; K57.30 Diverticulosis of large intestine without perforation or abscess without bleeding; T50.995A Adverse effect of other drugs, medicaments and biological substances, initial encounter; M19.91 Primary osteoarthritis, unspecified site; R60.0 Localized edema; N20.0 Calculus of kidney; Z79.82 Long term (current) use of aspirin; Z79.899 Other long term (current) drug therapy; Z79.84 Long term (current) use of oral hypoglycemic drugs; Z85.840 Personal history of malignant neoplasm of eye; Z97.0 Presence of artificial eye; Z90.49 Acquired absence of other specified parts of digestive tract; Z87.891 Personal history of nicotine dependence; Z95.5 Presence of coronary angioplasty implant and graft; Z92.3 Personal history of irradiation; Z80.0 Family history of malignant neoplasm of digestive organs; Z80.1 Family history of malignant neoplasm of trachea, bronchus and lung; Z80.8 Family history of malignant neoplasm of other organs or systems; Z80.49 Family history of malignant neoplasm of other genital organs
CPT/HCPCS: 36415; 71046; 74176; 80053; 81001; 82150; 82550; 83605; 83615; 83690; 83735; 84484; 85025; 85610; 85730; 93005; 93970; 99285

== ENCOUNTER → 2019-03-07 | Outpatient (CLI) | payer MEDICARE, OTHER ==
--- NOTE | 2019-03-07 13:38 | CT ---
EXAMINATION TYPE: CT soft tissue neck w con DATE OF EXAM: 03/07/2019 HISTORY: Melanoma COMPARISON: NONE CT DLP: 310.50 mGycm. Automated Exposure Control for Dose Reduction was Utilized. TECHNIQUE: CT scan of the neck is performed with IV Contrast, patient injected with 100-slit with CT A mL of Isovue 370, axial images are obtained, coronal and sagittal reformatted images are reviewed. FINDINGS: Airway: No gross abnormality seen. Parotid/submandibular glands: No gross abnormality seen. Carotid/Vascular Structures: [id number] calcified plaque supraclinoid segment distal internal c arotid arteries is present bilaterally. No significant stenosis in the carotid bulb level is seen. Mi ld left-sided plaque is noted . Osseous Structures: Suspicious lytic lesions involve the anterior C4 and C5 vertebral sagittal image 36 as well as posterior C6 vertebra sagittal image 36. Other: Right globe prosthesis is present. Please refer to same-day CT chest report for complete details lung apices. IMPRESSION: Lytic osseous metastatic disease is felt present.
--- NOTE | 2019-03-07 13:43 | CT ---
EXAMINATION TYPE: CT angio chest DATE OF EXAM: 03/07/2019 COMPARISON: PET CT January 13, 2019. Chest CT December 24, 2018 HISTORY: Melanoma CT DLP: 383.80 mGycm. Automated Exposure Control for Dose Reduction was Utilized. CONTRAST: CTA scan of the thorax is performed with IV Contrast, patient injected with 100-slit with Neck mL of Isovue 370, pulmonary embolism protocol. MIP Images are created on CT scanner and reviewed. FINDINGS: LUNGS: The lungs are grossly clear, there is no concerning parenchymal mass or nodule identified. T here is no pleural effusion or pneumothorax seen. The tracheobronchial tree is patent. MEDIASTINUM: There is satisfactory enhancement of the pulmonary artery and its branches, there is no CT evidence for pulmonary embolism. There are no greater than 1 cm hilar or mediastinal lymph nodes. No cardiomegaly or pericardial effusion is seen. OTHER: Hepatomegaly with innumerable hepatic hypodense lesions correspond to diffuse metastatic disea se seen on recent PET/CT. Continued interval enlargement of liver is noted. Diffuse osseous metastatic disease on PET CT is less well seen on CT chest study. IMPRESSION: Marked hepatic metastatic disease redemonstrated. Continued enlargement of liver noted. N o CT evidence for pulmonary embolism. No new suspicious acute pulmonary process.
== END | disposition home or self-care (01) ==
LOC: RADCTMAIN 08:40
PROVIDERS: ATTEND Internal Medicine Hematology & Oncology
DX: C78.7 Secondary malignant neoplasm of liver and intrahepatic bile duct (principal); R16.0 Hepatomegaly, not elsewhere classified; C79.51 Secondary malignant neoplasm of bone; C43.9 Malignant melanoma of skin, unspecified; Z03.89 Encounter for observation for other suspected diseases and conditions ruled out
CPT/HCPCS: 82565; 84520; 70491; 71275; 36415; Q9967

== ENCOUNTER 2019-03-14 15:10 | Inpatient (IN) | payer MEDICARE, OTHER ==
[2019-03-14] MEDS ORDERED: SODIUM CHLORIDE 0.9% 1,000 ML IV STA ×2 (15:35→17:36)
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
[2019-03-14 16:21] LABS: Albumin 2.7 g/dL (3.5-5.0); Calcium 7.8 mg/dL (8.4-10.2); Potassium 5.1 mmol/L (3.5-5.1); Total Protein 5.9 g/dL (6.3-8.2)
[2019-03-14] MEDS ORDERED: HYDROmorphone 1 MG/ML 1 ML SYRINGE IVP STA (16:23)
[2019-03-14 16:30] LABS: Total Bilirubin 15.2 mg/dL (0.2-1.3)
[2019-03-14 16:37] LABS: Anisocytosis Slight; Basophils % (A) 0 %; Eosinophils % (A) 0 %; HCT 48.4 % (39.0-53.0); HGB 15.7 gm/dL (13.0-17.5); Hypochromasia Slight; Lymphocytes % (A) 9 %; MCHC 32.4 g/dL (31.0-37.0); MCV 89.6 fL (80.0-100.0); Mean Platelet Volume 8.4; Monocytes # (A) 0.9 k/uL (0-1.0); Monocytes % (A) 8 %; Neutrophils # (A) 9.2 k/uL (1.3-7.7); Neutrophils % (A) 82 %; Platelet Count 201 k/uL (150-450); RBC 5.39 m/uL (4.30-5.90); RDW 19.7 % (11.5-15.5); WBC 11.2 k/uL (3.8-10.6)
[2019-03-14 16:38] LABS: INR 1.6 (<1.2); Partial Thromboplastin Time 36.3 sec (22.0-30.0)
[2019-03-14 16:58] LABS: Glucose,Whole Blood 41 mg/dL (75-99)
[2019-03-14] MEDS ORDERED: OCTREOTIDE 100 MCG/ML INJ IVP STA (17:03)
[2019-03-14] MEDS ORDERED: DEXTROSE 5%-0.45% NACL 1,000 ML IV ONE (17:03)
[2019-03-14] MEDS ORDERED: SODIUM CHLORIDE 0.9% 500 ML 500 ML IV STA (17:36)
[2019-03-14 17:40] LABS: Glucose,Whole Blood 41 mg/dL (75-99)
[2019-03-14] MEDS ORDERED: methylPREDNISolone SOD SUCCI 125 MG/2 ML VIAL IV STA (17:51)
[2019-03-14 18:36] LABS: Glucose,Whole Blood 62 mg/dL (75-99)
[2019-03-14 18:36] LABS: Lactic Acid, Venous 7.6 mmol/L (0.7-2.0)
[2019-03-14] MEDS ORDERED: LACTULOSE 20 GM/30 ML CUP PO ONE (19:15)
--- NOTE | 2019-03-14 19:18 | CT ---
EXAMINATION TYPE: CT abdomen pelvis wo con DATE OF EXAM: 03/14/2019 COMPARISON: 02/22/2019 HISTORY: Generalized pain with vomiting. CT DLP: 593.6 mGycm Automated exposure control for dose reduction was used. TECHNIQUE: Helical acquisition of images was performed from the lung bases through the pelvis. FINDINGS: Lung bases are clear. There is no pleural effusion. There is coronary artery calcification. There is no pericardial effusion. Liver is enlarged and measures 31 cm in length. The bile ducts are not dilated. There is patchy hypod ensity throughout the liver. There are clips from cholecystectomy. Spleen appears normal. There is no encroachment mass. Stomach appears normal. There is no adrenal mass. Kidneys have fairly normal size. There is 3 cm cortical cyst lateral right kidney. There is 1 cm calculus lower pole left kidney. There is no retroperitoneal adenopathy. There is some mild fluid in the right paracolic gutter. Appendix appears normal. There is no evidence of a bowel obstruction. Bladder distends smoothly. There is no inguinal hernia. There is no evidence of fr ee air. There is no mesenteric edema. The bony pelvis appears intact. Lumbar spine is intact. There i s no compression fracture. There is mild subcutaneous edema around the abdomen. IMPRESSION: MASSIVE HEPATOMEGALY WITH MULTIPLE LOW-DENSITY AREAS THAT WOULD BE CONSISTENT WITH METASTATIC DISEASE . NO SIGNIFICANT CHANGE COMPARED TO OLD EXAM. NONOBSTRUCTING LEFT RENAL CALCULUS. ATHEROSCLEROTIC VAS CULAR DISEASE.
[2019-03-14 19:33] LABS: Glucose,Whole Blood 88 mg/dL (75-99)
--- NOTE | 2019-03-14 19:40 | XR ---
EXAMINATION TYPE: XR chest 2V DATE OF EXAM: 03/14/2019 COMPARISON: 02/22/2019 HISTORY: Short of breath TECHNIQUE: Frontal and lateral views of the chest are obtained. FINDINGS: Heart is normal. Lungs are clear. Costophrenic angles are clear. Bony thorax is intact. IMPRESSION: Normal chest. No change.
[2019-03-14 19:58] LABS: Appearance,Urine Cloudy (Clear); Bilirubin,Urine 2+ (Negative); Blood,Urine Small (Negative); Color,Urine Dark Brown; Glucose,Urine (UA) Negative (Negative); Ketones,Urine Negative (Negative); Leukocyte Esterase,Urine Negative (Negative); Mucus,Urine Rare /hpf; Nitrite,Urine Negative (Negative); PH, Urine 5.5 (5.0-8.0); Protein,Urine Trace (Negative); RBC,Urine 2 /hpf (0-5); Specific Gravity,Urine 1.013 (1.001-1.035); WBC,Urine 1 /hpf (0-5)
[2019-03-14] MEDS: SODIUM CHLORIDE 0.9% 1,000 ML IV ONE ×2 (20:00→23:48)
[2019-03-14 20:17] LABS: Glucose,Whole Blood 78 mg/dL (75-99)
[2019-03-14] MEDS ORDERED: ONDANSETRON 4 MG/2 ML VIAL IVP PRN (21:17)
[2019-03-14] MEDS ORDERED: PROCHLORPERAZINE 10 MG TAB PO PRN (21:21)
[2019-03-14] MEDS ORDERED: ZOLPIDEM 5 MG TAB PO PRN (21:21)
[2019-03-14] MEDS ORDERED: NALOXONE 0.4 MG/ML 1 ML VIAL IV PRN (21:35)
[2019-03-14] MEDS ORDERED: SODIUM CHLORIDE 0.9% 1,000 ML IV SCH (21:45)
[2019-03-14] MEDS: LACTULOSE 20 GM/30 ML CUP PO SCH (22:47)
[2019-03-14] MEDS: FAMOTIDINE 20 MG TAB PO SCH (22:48)
[2019-03-14] MEDS ORDERED: SODIUM CHLORIDE 0.9% 1,000 ML IV ONE (23:46)
[2019-03-15 01:03] VITALS: BMI 30.2
[2019-03-15 03:35] LABS: Glucose,Whole Blood 146 mg/dL (75-99)
[2019-03-15 05:09] LABS: Anisocytosis Slight; HCT 47.5 % (39.0-53.0); HGB 14.9 gm/dL (13.0-17.5); Hypochromasia Marked; MCH 28.8 pg (25.0-35.0); MCHC 31.3 g/dL (31.0-37.0); Platelet Count 170 k/uL (150-450); RBC 5.17 m/uL (4.30-5.90); RDW 19.5 % (11.5-15.5); WBC 12.3 k/uL (3.8-10.6)
[2019-03-15 05:14] LABS: Albumin 2.4 g/dL (3.5-5.0); Calcium 6.8 mg/dL (8.4-10.2); Potassium 5.3 mmol/L (3.5-5.1); Total Protein 5.4 g/dL (6.3-8.2)
[2019-03-15 05:24] LABS: Total Bilirubin 15.5 mg/dL (0.2-1.3)
[2019-03-15] MEDS: SODIUM CHLORIDE 0.9% 1,000 ML IV SCH ×2 (05:33→17:55)
[2019-03-15 05:40] LABS: Lymphocytes # (M) 0.37 k/uL (1.0-4.8); Monocytes # (M) 0.98 k/uL (0-1.0); Neutrophils # (M) 10.95 k/uL (1.3-7.7); Neutrophils % (M) 89 %; Nucleated Red Blood Cells 0 /100 WBC (0-0); Total Cells Counted 100
[2019-03-15 07:10] LABS: Glucose,Whole Blood 172 mg/dL (75-99)
[2019-03-15] MEDS: INSULIN ASPART (NovoLOG) 100 UNIT/ML VIAL SQ SCH ×2 (07:12→17:53)
[2019-03-15] MEDS: methylPREDNISolone SOD SUCCI 125 MG/2 ML VIAL IV SCH ×3 (07:12→17:55)
[2019-03-15] MEDS: LACTULOSE 20 GM/30 ML CUP PO SCH (08:18)
[2019-03-15] MEDS: FAMOTIDINE 20 MG TAB PO SCH (08:20)
[2019-03-15] MEDS ORDERED: TAMSULOSIN 0.4 MG CAP.ER.24H PO SCH (08:30)
[2019-03-15] MEDS ORDERED: ATORVASTATIN 20 MG TAB PO SCH (09:00)
[2019-03-15] MEDS ORDERED: ISOSORBIDE MONONITRATE ER 30 MG TAB.ER.24H PO SCH (09:00)
[2019-03-15] MEDS ORDERED: POTASSIUM CHLORIDE ER 20 MEQ TAB.ER PO SCH (09:00)
[2019-03-15] MEDS ORDERED: METOPROLOL SUCCINATE (ER) 25 MG TAB.ER.24H PO SCH (09:00)
[2019-03-15] MEDS ORDERED: CLOPIDOGREL 75 MG TAB PO SCH (09:00)
[2019-03-15] MEDS ORDERED: LOSARTAN 50 MG TAB PO SCH (09:00)
[2019-03-15] MEDS ORDERED: FUROSEMIDE 40 MG TAB PO SCH (09:00)
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
[2019-03-15] MEDS: HYDROmorphone 0.5 MG/0.5 ML SYRINGE IVP PRN ×2 (10:43→12:04)
[2019-03-15] MEDS ORDERED: HYDROmorphone 1 MG/ML 1 ML SYRINGE IVP PRN (11:48)
[2019-03-15] MEDS ORDERED: LORazepam 2 MG/ML INJ IV PRN (11:48)
[2019-03-15 12:10] LABS: Glucose,Whole Blood 179 mg/dL (75-99)
[2019-03-15 13:27] VITALS: TEMP 98.1
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
[2019-03-15 17:52] VITALS: BP 86/35; PULSE 56; RESP 13
[2019-03-16] MEDS ORDERED: FAMOTIDINE 20 MG TAB PO SCH (09:00)
== END 2019-03-15 20:20 | disposition hospice, home (50) | DRG 438 ==
LOC: EC 15:10 → 2SICU 17:35
PROVIDERS: ADMIT Hospitalist; ATTEND Hospitalist
DX: K85.30 Drug induced acute pancreatitis without necrosis or infection (principal); G93.41 Metabolic encephalopathy; C78.7 Secondary malignant neoplasm of liver and intrahepatic bile duct; E44.0 Moderate protein-calorie malnutrition; N17.9 Acute kidney failure, unspecified; E87.2 Acidosis; C79.51 Secondary malignant neoplasm of bone; R64 Cachexia; K75.4 Autoimmune hepatitis; T45.1X5A Adverse effect of antineoplastic and immunosuppressive drugs, initial encounter; Z66 Do not resuscitate; E11.9 Type 2 diabetes mellitus without complications; I35.0 Nonrheumatic aortic (valve) stenosis; K57.30 Diverticulosis of large intestine without perforation or abscess without bleeding; N20.0 Calculus of kidney; E78.5 Hyperlipidemia, unspecified; I25.10 Atherosclerotic heart disease of native coronary artery without angina pectoris; K21.9 Gastro-esophageal reflux disease without esophagitis; M19.90 Unspecified osteoarthritis, unspecified site; I10 Essential (primary) hypertension; I25.2 Old myocardial infarction; M19.91 Primary osteoarthritis, unspecified site; Z68.30 Body mass index [BMI] 30.0-30.9, adult; Z79.02 Long term (current) use of antithrombotics/antiplatelets; Z79.84 Long term (current) use of oral hypoglycemic drugs; Z79.899 Other long term (current) drug therapy; Z85.840 Personal history of malignant neoplasm of eye; Z90.49 Acquired absence of other specified parts of digestive tract; Z95.5 Presence of coronary angioplasty implant and graft; Z97.0 Presence of artificial eye; Z90.01 Acquired absence of eye; Z92.3 Personal history of irradiation; Z87.891 Personal history of nicotine dependence; Z80.49 Family history of malignant neoplasm of other genital organs; Z80.1 Family history of malignant neoplasm of trachea, bronchus and lung; Z80.0 Family history of malignant neoplasm of digestive organs; Z80.8 Family history of malignant neoplasm of other organs or systems
CPT/HCPCS: 36415; 71046; 74176; 80053; 81001; 82140; 82150; 82533; 82550; 83605; 83690; 85025; 85610; 85730; 87086; 96361; 96374; 96375; 99291